=== PATIENT | female | born 1995 | race Caucasian/White ===

== ENCOUNTER 2020-01-04 23:09 | Inpatient (IN) | payer OTHER, SELFPAY ==
[2020-01-04 23:29] VITALS: BP 129/88; PULSE 111
[2020-01-04 23:30] VITALS: BP 129/93; PULSE 125
[2020-01-04 23:45] VITALS: BP 137/86; PULSE 95
[2020-01-04 23:49] VITALS: BMI 34.0
--- NOTE | 2020-01-04 23:50 | LDADM ---
This patient, Roselia Yancey, was admitted to Labor/Delivery/Recovery 104 on 01/04/20 at 23:09. Plans for labor, pain management and were discussed with patient. Patient/family oriented to hospital policies and general routines including ID bracelet, bed and alarms, visiting hours, pain management, procedures, bathroom and other care routines, personal items, smoking policy, room service/diet and guest tray routines, security routines, and visiting hours. Patient/Family are encouraged to report perceived risks to care and to ask questions if they do not understand what they are told or what they should do. See OBIX for further documentation.
[2020-01-04 23:51] LABS: Basophils Percent Auto 0.3 % (0.2-1.2); Eosinophils Absolute Auto 0.1 K/mm3 (0-0.3); Eosinophils Percent Auto 0.5 % (0-4.4); Hematocrit 30.7 % (37.0-47.0); Hemoglobin 9.8 g/dL (12.0-15.0); Immature Granulocyte Absolute 0.07 K/mm3 (0.00-0.031); Immature Granulocyte Percent A 0.7 % (0-0.5); Lymphocytes Absolute Auto 2.23 K/mm3 (0.9-3.2); Lymphocytes Percent Auto 21.2 % (18.3-44.2); Mean Corpuscular HGB Conc 31.9 g/dl (32-36); Mean Corpuscular Hemoglobin 26.1 pg (26-34); Mean Corpuscular Volume 81.9 fl (80-100); Mean Platelet Volume 11.8 fl (7.4-10.4); Monocytes Absolute Auto 0.8 K/mm3 (0.1-0.6); Monocytes Percent Auto 7.7 % (2.6-8.5); Neutrophils Absolute Auto 7.3 K/mm3 (1.3-6.7); Neutrophils Percent Auto 69.6 % (45.5-73.1); Platelet Count Result 227 k/mm3 (150-375); Red Blood Count 3.75 M/mm3 (4.2-5.4); Red Cell Distribution Width 14.6 % (11.5-14.5); White Blood Count 10.5 K/mm3 (4.5-10.0)
[2020-01-04 23:56] VITALS: PULSE 102; O2SAT 100
[2020-01-05] VITALS (185 sets, daily range): BP systolic 96–151; BP diastolic 18–95; PULSE 82–125; TEMP 36.9; O2SAT 89–100
[2020-01-05] MEDS: DINOPROSTONE 10 MG VAG INSERT VAGINAL (00:24)
--- NOTE | 2020-01-05 06:15 | WPDANESEPP ---
Anes - Eval Pre Procedure Procedure: labor epidural Date/Time: 01/05/20 06:15 Surgeon: Gilson Preop Diagnosis: labor pain Pre Op Diagnosis: IOL Patient Data Age: 24 Gender: F Height: 1.6 m Weight: 87.25 kg Last Vital Signs Pulse 91 01/05/20 04:46 BP 124/70 01/05/20 04:46 Pulse Ox 97 01/05/20 05:00 Allergies Allergy/AdvReac Type Severity Reaction Status Date / Time shellfish derived Allergy Anaphylaxis Verified 12/03/19 12:39 Home Medications Medication Instructions Recorded Confirmed Type PNV cmb#95-ferrous fumarate-FA 1 tablet PO DAILY 12/03/19 12/03/19 History [] Laboratory Tests 01/04/20 01/04/20 01/04/20 23:45 23:45 23:46 WBC 10.5 K/mm3 H K/mm3 (4.5-10.0) RBC 3.75 M/mm3 L M/mm3 (4.2-5.4) Hgb 9.8 g/dL L D g/dL (12.0-15.0) Hct 30.7 % L % (37.0-47.0) MCV 81.9 fl fl (80-100) MCH 26.1 pg pg (26-34) MCHC 31.9 g/dl L g/dl (32-36) RDW 14.6 % H % (11.5-14.5) Plt Count 227 k/mm3 k/mm3 (150-375) MPV 11.8 fl H fl (7.4-10.4) Immature Gran % (Auto) 0.7 % H % (0-0.5) Neut % (Auto) 69.6 % % (45.5-73.1) Lymph % (Auto) 21.2 % % (18.3-44.2) [place] % (Auto) 7.7 % % (2.6-8.5) Eos % (Auto) 0.5 % % (0-4.4) Baso % (Auto) 0.3 % % (0.2-1.2) Lymph # (Auto) 2.23 K/mm3 K/mm3 (0.9-3.2) [place] # (Auto) 0.8 K/mm3 H K/mm3 (0.1-0.6) Eos # (Auto) 0.1 K/mm3 K/mm3 (0-0.3) Baso # (Auto) 0.0 K/mm3 K/mm3 (0.0-0.1) Abs Immat Gran (auto) 0.07 K/mm3 H K/mm3 (0.00-0.031) Absolute Neuts (auto) 7.3 K/mm3 H K/mm3 (1.3-6.7) Absolute Nucleated RBC 0.0 K/mm3 K/mm3 (0.0-0.012) Nucleated RBC % 0.0 % % (0.0-0.2) RPR Pending Blood Type O Positive Antibody Screen Negative Patient hx anesthesia problems: none Family hx anesthesia problems: none PMFSH Family History Family History Other No pertinent family history Social History Social History Smoking status: Never smoker Second hand tobacco smoke exposure: No Substance use: never Gender identity (if verbalized by the patient): Female Spiritual care concerns: No Exam Day of Procedure 01/05/20 06:15 Patient weight: obese Heart: regular rate and rhythm Lungs: clear to auscultation and normal air movement Airway: Mallampati scale class II Neurological: alert and oriented
[2020-01-05 07:14] LABS: Rapid Plasma Reagin Non-Reactive (NonReactive)
--- NOTE | 2020-01-05 07:38 | PM.IMHP ---
H&P: HPI History of Present Illness Chief complaint: IOL Narrative: Roselia Yancey is a 24 yo @ 40.3wks who presents for IOL. She denies any issues and has had regular care. No vaginal bleeding, leakage of fluid. Good movement. Mild cramping. is complicated by: - [place] non-immune Review of Systems Constitutional: Constitutional: Denies body ache(s) and Denies chills Eyes: Eyes: Denies blurry vision Cardiovascular: Cardiovascular: Denies chest pain and Denies palpitations Respiratory: Respiratory: Denies cough and Denies dyspnea Gastrointestinal: Gastrointestinal: Denies nausea and Denies vomiting Genitourinary: Genitourinary: Denies vaginal discharge Neurologic: Denies headache(s) Psychiatric: Psychiatric: Denies anxiety [facility] Family History Family History Other No pertinent family history Social History Social History Smoking status: Never smoker Second hand tobacco smoke exposure: No Substance use: never Gender identity (if verbalized by the patient): Female Spiritual care concerns: No Meds Home Medications and Allergies Home Medications Medication Instructions Recorded Confirmed Type PNV cmb#95-ferrous fumarate-FA 1 tablet PO DAILY 12/03/19 12/03/19 History [] Allergies Allergy/AdvReac Type Severity Reaction Status Date / Time shellfish derived Allergy Anaphylaxis Verified 12/03/19 12:39 Vital Signs Vital Signs - 24 hr 01/04/20 23:29 01/04/20 23:30 01/04/20 23:45 Pulse Rate 111 H 125 H 95 Blood Pressure 129/88 129/93 H 137/86 Pulse Oximetry 01/04/20 23:56 01/05/20 00:01 01/05/20 00:06 Pulse Rate 94 Blood Pressure 123/81 Pulse Oximetry 100 100 99 01/05/20 00:11 01/05/20 00:15 01/05/20 00:16 Pulse Rate 109 H Blood Pressure 119/78 Pulse Oximetry 99 99 01/05/20 00:21 01/05/20 00:26 01/05/20 00:30 Pulse Rate 110 H Blood Pressure 117/81 Pulse Oximetry 100 100 01/05/20 00:31 01/05/20 00:36 01/05/20 00:41 Pulse Rate Blood Pressure Pulse Oximetry 100 100 100 01/05/20 00:45 01/05/20 00:46 01/05/20 00:51 Pulse Rate 85 Blood Pressure 124/75 Pulse Oximetry 100 99 01/05/20 00:56 01/05/20 01:00 01/05/20 01:01 Pulse Rate 87 Blood Pressure 128/79 Pulse Oximetry 100 100 01/05/20 01:06 01/05/20 01:11 01/05/20 01:15 Pulse Rate 94 Blood Pressure 124/82 Pulse Oximetry 100 99 01/05/20 01:16 01/05/20 01:21 01/05/20 01:26 Pulse Rate Blood Pressure Pulse Oximetry 100 100 100 01/05/20 01:30 01/05/20 01:31 01/05/20 01:36 Pulse Rate 103 H Blood Pressure 118/79 Pulse Oximetry 100 99 01/05/20 01:41 01/05/20 01:45 01/05/20 01:46 Pulse Rate 116 H Blood Pressure 126/76 Pulse Oximetry 100 100 01/05/20 01:51 01/05/20 01:56 01/05/20 02:00 Pulse Rate 114 H Blood Pressure 120/66 Pulse Oximetry 100 99 01/05/20 02:01 01/05/20 02:06 01/05/20 02:11 Pulse Rate Blood Pressure Pulse Oximetry 100 99 100 01/05/20 02:15 01/05/20 02:16 01/05/20 02:21 Pulse Rate 95 Blood Pressure 131/87 Pulse Oximetry 100 99 01/05/20 02:29 01/05/20 02:34 01/05/20 02:39 Pulse Rate Blood Pressure Pulse Oximetry 100 100 99 01/05/20 02:44 01/05/20 02:46 01/05/20 02:49 Pulse Rate 92 Blood Pressure 134/86 Pulse Oximetry 99 99 01/05/20 02:54 01/05/20 02:59 01/05/20 03:01 Pulse Rate 92 Blood Pressure 113/58 L Pulse Oximetry 99 99 01/05/20 03:04 01/05/20 03:09 01/05/20 03:14 Pulse Rate Blood Pressure Pulse Oximetry 99 99 99 01/05/20 03:16 01/05/20 03:19 01/05/20 03:24 Pulse Rate 87 Blood Pressure 110/55 L Pulse Oximetry 99 98 01/05/20 03:29 01/05/20 03:31 01/05/20 03:34 Pulse Rate 82 Blood Pressure 106/54 L Pulse Oximetry 98 98 01/05/20 03:39
[2020-01-05] MEDS: LACTATED RINGERS 1,000 ML 125 ML IV CONT ×2 (14:48→19:01)
[2020-01-05] MEDS: OXYTOCIN 30 UNITS/NS 500 ML 30 UNITS/500 ML BAG 6 UNITS IV CONT (14:52)
--- NOTE | 2020-01-05 18:02 | PM.OBPNLAB ---
Pain Control Date/time seen: 01/05/20 17:38 Pain control: narcotic analgesia (using fentanyl PRN) Pelvic Exam Dilation (cm): 1 Effacement (%): 70 station: -2 Amniotic membrane status: Ruptured (AROM, clear 1800) Contractions Monitor mode: External Contraction frequency: 3 Contraction pattern: Regular Status status: Category l Assessment and Plan Pitocin rate (mU/min): 18 Assessment: induction ongoing Comments: s/p cervidil overnight, now on pitocin @ 18mu; early induction @ 1cm, but unchanged all day, AROM performed this exam-- continue pitocin per protocol
[2020-01-05] MEDS: ONDANSETRON INJ 4 MG/2 ML VIAL IV PUSH (18:56)
[2020-01-06] VITALS (159 sets, daily range): BP systolic 83–161; BP diastolic 39–96; PULSE 73–169; RESP 15–20; TEMP 36.4–37.9; O2SAT 92–100
[2020-01-06] MEDS: FAMOTIDINE 20 MG/2 ML VIAL IV PUSH (00:49)
[2020-01-06] MEDS: ONDANSETRON INJ 4 MG/2 ML VIAL IV PUSH (07:36)
--- NOTE | 2020-01-06 09:27 | WPDANESEFPP ---
Anes - Eval Final PreProcedure Day of Procedure 01/06/20 09:27 Patient weight: obese Heart: regular rate and rhythm Lungs: clear to auscultation and normal air movement Airway: Mallampati scale class II Neurological: alert and oriented Last oral intake: >/= 8 hours ASA classification: II Emergent: yes Anesthetic plan: proceed Anesthesia type and monitoring: regional epidural and standard monitoring Informed Consent: The patient's anesthetic plan and its attendant risks and benefits were discussed with the patient/family/POA. Questions were solicited and answers provided to the satisfaction of the patient/family/POA.
--- NOTE | 2020-01-06 09:40 | WPDANESEFPP ---
Anes - Eval Final PreProcedure Day of Procedure 01/06/20 09:40 Patient weight: obese Heart: regular rate and rhythm Lungs: clear to auscultation and normal air movement Airway: Mallampati scale class II Neurological: alert and oriented Last oral intake: >/= 8 hours ASA classification: II Emergent: yes Anesthetic plan: proceed Anesthesia type and monitoring: regional epidural and standard monitoring Other findings: emergent C section Informed Consent: The patient's anesthetic plan and its attendant risks and benefits were discussed with the patient/family/POA. Questions were solicited and answers provided to the satisfaction of the patient/family/POA.
[2020-01-06] MEDS: ceFAZolin 2 GM/D5W 50 ML 2 GM/50 ML BAG IVPB (09:42)
--- NOTE | 2020-01-06 10:34 | PM.OBPRVD ---
OB - Delivery Note Procedure Delivery date: 01/06/20 Procedure: Procedures Operation Date: 01/06/20 09:30 <No data on this case meets the specified criteria> Intrapartal events: Prolonged 2nd Stage > 2.5 hours (with direct OP position) Induction method: other (Cervidil ) Delivery augmentation: rupture of membranes and pitocin Delivery monitor: external FHT and internal uterine Route of delivery: (after attempt at vacuum extraction) Indication for instrumentation: maternal exhaustion Laceration description: None Delivery repair: vicryl Specimen: Yes Estimated blood loss (mL): 355 Anesthesia type: Epidural Disposition: PACU Narrative: She had progressed to C/C/+2 after pushing for approximately 3 hours and was significantly tearful due to being exhausted after prolonged induction and pushing. She desired attempt at vacuum extraction. She was counseled on the risks and benefits and when the procedure would be discontinued and we would proceed with section; she agreed. The pediatric team was in the room. Once she felt a contraction, suction was applied, three pulls were performed without a pop-off, mild descent occurred and suction was released. Another contraction came and suction was reapplied and one pull was performed and a pop-off occurred. At that time, the patient desired to stop vacuum extraction and proceed with section. She was taken to the operating room where epidural anesthesia was noted to be aqequate. She was then prepped and draped in the normal sterile fashion. She received 2g Ancef and a time out was performed. A Pfannenstiel incision was made in the skin and carried down to the underlying fascia. The fascia was nicked on either side of the midline and the fascial incision was extended laterally and superiorly. The fascia was then elevated and the underlying rectus muscles were dissected off the fascia, superiorly and inferiorly. The rectus muscles were then in the midline and the peritoneum was entered bluntly. Once adequate exposure was obtained, an Esteban self retractor was placed within the abdomen. A bladder flap was created. A low transverse incision was made on the lower uterine segment and lightly stained meconium fluid was noted. The fetus was noted to be in direct occiput posterior position and easily brought to the hysterotomy and the head was easily delivered. The shoulder and body then followed without complications, the body cord was reduced. The fetus had spontaneous cry and the mouth was bulb suctioned. The cord was clamped and cut and the fetus was handed off to the awaiting pediatric nurse. A segment of the cord was collected for cord gases. The remaining cord blood was collected for typing. With pitocin infusing, the placenta delivered with gentle traction on the cord without complications. The uterus was then cleared out of all clots and debris using a clean, moist lap. Significant atony was noted, so methergine 0.2mg IM was administered. The hysterotomy was then repaired in a running, interlocking fashion using 0 Vicryl. A second layer imbricating suture was then made using 0 Vicryl. The hysterotomy was found to be hemostatic and good uterine tone was noted. The bilateral adnexa were examined and found to be normal. The pelvis was cleared of all clots and fluid. The esteban retractor was removed from the abdomen. The peritoneum, muscle, and fascia were examined and made hemostatic with bovie cautery. The fascia was then repaired using 0 Vicryl sutures in a running fashion. The subcutaneous tissue was then irrigated and made hemostatic with bovie cautery. The subcutaneous tissue was then reapproximated using 2-0 Vicryl. The skin was then closed using 3-0 Monocryl in a running subcuticular fashion. Sponge, lap, needle and instrument counts were correct at the end of the procedure x2. The patient tolerated the procedure well and was taken to recovery in a stable condition. [place] [facility]
[2020-01-06] MEDS: KETOROLAC 30 MG/ML VIAL (*BKC) IV PUSH ×3 (11:56→23:34)
[2020-01-06] MEDS: OXYTOCIN 30 UNITS/NS 500 ML 30 UNITS/500 ML BAG 125 UNITS IV CONT (11:56)
--- NOTE | 2020-01-06 12:48 | PC.NURSE ---
Patient transferred to post room #291 per stretcher. Support person present. Oriented to unit, room, information board, rooming in, admission packet and security measures. Patient verbalizes understanding.
[2020-01-06] MEDS: DEXTROSE 5%/0.45% SOD CHL 1,000 ML 125 ML IV CONT (17:11)
[2020-01-06] MEDS: DOCUSATE SODIUM 100 MG CAPSULE PO (17:12)
[2020-01-06] MEDS: LANOLIN (LANSINOH) 7.5 GM CREAM 1 APPLIC TOPICAL (17:12)
[2020-01-06] MEDS: POLYSACCHARIDE IRON COMPLEX 150 MG CAPSULE PO (17:12)
[2020-01-06] MEDS: SIMETHICONE 80 MG TAB.CHEW PO ×2 (17:12→23:34)
[2020-01-06] MEDS: KCL 20 MEQ/D5/0.45% SOD CHL 1,000 ML 125 ML IV CONT (23:34)
[2020-01-07 05:30] VITALS: BP 105/60; PULSE 96; RESP 13; TEMP 36.8; O2SAT 99
[2020-01-07 05:42] LABS: Basophils Percent Auto 0.2 % (0.2-1.2); Eosinophils Percent Auto 0.3 % (0-4.4); Hemoglobin 7.5 g/dL (12.0-15.0); Immature Granulocyte Absolute 0.17 K/mm3 (0.00-0.031); Immature Granulocyte Percent A 1.1 % (0-0.5); Lymphocytes Absolute Auto 2.03 K/mm3 (0.9-3.2); Lymphocytes Percent Auto 12.9 % (18.3-44.2); Mean Corpuscular HGB Conc 31.3 g/dl (32-36); Mean Corpuscular Hemoglobin 26.3 pg (26-34); Mean Corpuscular Volume 84.2 fl (80-100); Neutrophils Absolute Auto 12.6 K/mm3 (1.3-6.7); Neutrophils Percent Auto 79.5 % (45.5-73.1); Platelet Count Result 160 k/mm3 (150-375); Red Blood Count 2.85 M/mm3 (4.2-5.4); White Blood Count 15.8 K/mm3 (4.5-10.0)
[2020-01-07] MEDS: IBUPROFEN 600 MG TABLET PO ×3 (05:42→17:03)
[2020-01-07 08:00] VITALS: BP 111/57; PULSE 118; RESP 18; TEMP 36.6; O2SAT 100
[2020-01-07] MEDS: DOCUSATE SODIUM 100 MG CAPSULE PO ×2 (09:15→17:03)
[2020-01-07] MEDS: POLYSACCHARIDE IRON COMPLEX 150 MG CAPSULE PO ×2 (09:15→17:03)
[2020-01-07] MEDS: MULTIVIT/MIN/PREN/FOL AC/IRON TABLET 1 TAB PO (09:15)
[2020-01-07] MEDS: SIMETHICONE 80 MG TAB.CHEW PO (09:15)
--- NOTE | 2020-01-07 09:52 | WPDANLDPN2 ---
Anes-Prog Note L&D Date/Time: 01/07/20 09:52 Comfortable throughout: labor and section Neuraxial method: epidural Epidural/Spinal procedure site: clean & non-tender Neuro status: Neuro function grossly intact. Cardiovascular status: normal Respiratory status: normal Airway patency: baseline Mental status: baseline Post-Op hydration status: normal Vital Signs: Last Vital Signs Temp 36.8 C 01/07/20 05:30 Pulse 96 01/07/20 05:30 Resp 13 01/07/20 05:30 BP 105/60 01/07/20 05:30 Pulse Ox 99 01/07/20 05:30 I/O: Intake & Output 01/06/20 01/07/20 01/07/20 23:59 07:59 15:59 Intake Total 2800 0 Output Total 550 1325 Balance 2250 -1325 Post-procedural complaints: none Patient feedback: Patient satisfied with anesthetic care.
--- NOTE | 2020-01-07 09:52 | WPDANLDNPN2 ---
Anes-Prog Note L&D-Neuraxial Date/Time: 01/07/20 09:52 Neuraxial medications: epidural PF morphine Opiod-related complaints: none Patient feedback: Patient satisfied with post-operative pain management.
--- NOTE | 2020-01-07 12:30 | P.PNOB_ITS ---
OB - PN: Subj Subjective Date/time seen: 01/07/20 16:51 Roselia is a 24yo now [id number] s/p pLTCS 2/2 AOD, POD #1 Today, she reports feeling more pain than yesterday but it's tolerable with the medications. She has ambulated w/o s/sx of anemia. She has voided. 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 She is tolerating regular diet w/o N/V. She is breast feeding. She would like her son to be circumcised. No CP, KRISHNAN, vision changes, SOB, fever, chills, palpitations, dizziness, N/V. OB - PN: Obj Data Labs CBC & Chem 7: 01/07/20 05:31 Labs: Laboratory Results - last 24 hr 01/07/20 05:31 WBC 15.8 H RBC 2.85 L Hgb 7.5 L Hct 24.0 L MCV 84.2 MCH 26.3 MCHC 31.3 L RDW 15.0 H Plt Count 160 MPV 11.0 H Immature Gran % (Auto) 1.1 H Neut % (Auto) 79.5 H Lymph % (Auto) 12.9 L [place] % (Auto) 6.0 Eos % (Auto) 0.3 Baso % (Auto) 0.2 Lymph # (Auto) 2.03 [place] # (Auto) 1.0 H Eos # (Auto) 0.0 Baso # (Auto) 0.0 Abs Immat Gran (auto) 0.17 H Absolute Neuts (auto) 12.6 H Absolute Nucleated RBC 0.0 Nucleated RBC % 0.0 OB - PN A/P Assessment and Plan (1) S/P section: Code(s): Z98.891 - History of uterine scar from previous surgery Status: Acute (2) Arrest of descent, delivered, current hospitalization: Code(s): O62.1 - Secondary uterine inertia Status: Acute (3) Anemia: Qualifiers: Anemia type: iron deficiency Iron deficiency anemia type: other iron deficiency Qualified Code(s): D50.8 - Other iron deficiency anemias Code(s): D64.9 - Anemia, unspecified Status: Acute Plan day: 1 Plan: routine care Time Spent With Patient Time: Total time spent is greater than 50% in coordination of care (as documented) at patient's floor/unit and/or counseling patient: Review of Systems Review of Systems: All systems reviewed & are unremarkable except as noted in HPI and below (hpi) Exam Const: General: comfortable, no acute distress, alert and awake Orientation/consciousness: patient oriented x3 Resp: Effort & Inspection: normal respiratory effort Auscultation: clear to auscultation bilaterally Cardio: Rate: regular rate GI: Auscultation: normal bowel sounds Other: non-distended, soft, appropriately tender : Other: fundus firm at umbilicus Psych: Appearance: grossly normal
--- NOTE | 2020-01-07 13:25 | PC.NURSE ---
Upon entering mother is attempting to right breast without shield. Mother reports she fed infant on left breast with shield and would try without. Reviewed positioning/alignment in cross cradle, holding breast in U hold and guided asymmetrical latch on. Several attempts made, was unable to latch correctly. Discussed shield use with parents, advised to use shield for feedings and attempt first for one or two attempts then go to shield for latching. Mother is planning to supplement after feedings until her milk is in. Mother was given a breastpump during the night and has only pumped once. Suggested she pump after each feeding while using the shield until milk supply is established.
[2020-01-07 19:20] VITALS: BP 119/71; PULSE 106; RESP 18; TEMP 36.7; O2SAT 100
[2020-01-07] MEDS: ACETAMINOPHEN 325 MG TABLET 650 MG PO (19:21)
--- NOTE | 2020-01-07 21:08 | PC.NURSE ---
Father brought in [employer] for travel home tomorrow. [employer] 30 manufactured Jun, 2019. All parts are new and functioning. Expiration Jun, 2025.
[2020-01-08] MEDS: IBUPROFEN 600 MG TABLET PO ×2 (00:56→08:53)
[2020-01-08 08:10] VITALS: BP 116/77; PULSE 102; RESP 18; TEMP 36.9; O2SAT 100
--- NOTE | 2020-01-08 08:50 | PC.NURSE ---
Mother is bottle feeding each feeding with pumping. Mother is feeding as required and waking to feed if needed. is currently meeting outcomes for weight, output, jaundice and feeding frequencies. Mother states she will attempt to breast once her milk is in and infant is more eager to latch. Mother states she feels confident to continue current feeding plan at home. Discussed to increase supplementation at desires. Reviewed transition to breast milk, signs of adequate intake, and engorgement/relief. Instructed to call ICP if intake/output less than required. Reviewed regular medications mother is taking. Information provided per Sue. Reviewed community resources on the [facility] website and in the Mom/Baby guide. Information on outpatient services provided. Mother has no further questions at this time.
[2020-01-08] MEDS: POLYSACCHARIDE IRON COMPLEX 150 MG CAPSULE PO (08:52)
[2020-01-08] MEDS: SIMETHICONE 80 MG TAB.CHEW PO (08:52)
[2020-01-08] MEDS: DOCUSATE SODIUM 100 MG CAPSULE PO (08:52)
[2020-01-08] MEDS: MULTIVIT/MIN/PREN/FOL AC/IRON TABLET 1 TAB PO (08:52)
[2020-01-08] MEDS: MEASLES,MUMPS,RUBELLA VACCINE 0.5 ML VIAL SUB-Q (11:34)
--- NOTE | 2020-01-08 12:00 | PC.NURSE ---
Patient ambulatory and discharged home with infant. Follow-up appointment scheduled, discharge teaching complete.
[2020-01-09 09:10] VITALS: BP 123/78; PULSE 98; RESP 20; TEMP 37.1; O2SAT 99
--- NOTE | 2020-01-11 11:32 | PM.OBDSVD ---
DS: Admitting Diagnosis Admitting Diagnosis Admitting Diagnosis: 40 weeks gestation of DS: Discharge Diagnosis Discharge Diagnosis (1) Arrest of descent, delivered, current hospitalization: Code(s): O62.1 - Secondary uterine inertia Status: Acute (2) S/P section: Code(s): Z98.891 - History of uterine scar from previous surgery Status: Acute (3) Anemia: Qualifiers: Anemia type: iron deficiency Iron deficiency anemia type: other iron deficiency Qualified Code(s): D50.8 - Other iron deficiency anemias Code(s): D64.9 - Anemia, unspecified Status: Acute OB - DS: Summary OB Procedures : None OB Procedures Intrapartum: Vacuum extraction (failed) and low cervical, transverse (uncomplicated) OB Procedures: : None Peripartum Data Infant Delivery Method: Section Procedures: Procedures Operation Date: 01/06/20 09:30 Actual Procedures Side Surgeon p Section Latoya Riggins MD complications: none Ephraim 1: Gender: Male Disposition of : home Status at Discharge Functional status at discharge: independent ambulation Overall status at discharge: patient is back to baseline Time Spent with Patient Time attestation: Total time spent providing and/or coordinating discharge services: Exam Const: General: comfortable, no acute distress, alert and awake Orientation/consciousness: patient oriented x3 Resp: Effort & Inspection: normal respiratory effort Auscultation: clear to auscultation bilaterally Cardio: Rate: regular rate GI: Inspection: non-distended GI Palp: Yes Soft to palpation Auscultation: normal bowel sounds Other: pfannenstiel incision covered w/ c/d/i dressing : Other: fundus firm below umbilicus, normal lochia Psych: Appearance: grossly normal Affect: normal affect Attitude: cooperative Judgement: Good judgement present (Psych) DS: Data Data Completed and Pending Completed studies during hospitalization: Pending at discharge 01/06/20 10:55 Surgical [PTH] Routine Discharge Plan Discharge Consulting providers: Tapan Chao Discharging Clinician: Maricel Edouard Patient Disposition: Home, Self-Care Activity: may shower, no driving, as tolerated and pelvic rest Diet: as tolerated and regular Discharge Instructions: Education: Mom and Baby Guide Given to: Mother Follow-Up: Call your delivering provider's office for an appointment to be seen in: Mom and baby should come to the [facility] for the follow-up appointment. Appointment Date/Time: January 09, 2020 at 9:00 am What to expect at your follow-up visit: Blood Pressure Check Call [phone] if you are unable to keep your appointment time. BREAST CARE: * Wear a snug supportive bra. * For engorgement discomfort: Breast Feeding: * Apply warm moist washcloths * Express milk as needed to relieve engorgement * Wear loose clothing Bottle Feeding: * May apply ice packs * For sore nipples: * Identify correct latch-on * Apply warm moist washcloths before and after nursing * Air dry nipples after nursing * May apply Lansinoh cream to nipples ABDOMINAL INCISION: (if applicable) * Allow incision to air dry * Do NOT use lotions for powders on your incision * When showering, allow soap and water to run over the incision, but do not wash incision PERINEAL CARE: * Until bleeding stops, use your keara bottle after urinating * Change your pad frequently throughout the day * No tub baths until seen by your physician - You may shower ACTIVITY: * Rest as much as possible. * Do not exercise or lift anything heavier than your baby (such as laundry or other children.) * Avoid stairs or driving as much as possible. * Do not put anything into the vagina. No douc
== END 2020-01-08 12:00 | disposition home or self-care (01) | DRG 788 ==
LOC: ANHLDR 23:21 → ANHOB2 01-08 08:31 → ANHLDR 01-08 18:13 → ANHOB2 01-08 18:13
PROVIDERS: Admitting Provider Obstetrics & Gynecology; Visit Provider Obstetrics & Gynecology
PROC: 10D00Z1 Extraction of Products of Conception, Low, Open Approach (ICD-10-PCS; CPT 59514; principal; 2020-01-06 09:30)
DX: O99.02 Anemia complicating childbirth (principal); Z37.0 Single live birth; Z3A.40 40 weeks gestation of pregnancy; O99.214 Obesity complicating childbirth; E66.9 Obesity, unspecified; D50.8 Other iron deficiency anemias; O62.1 Secondary uterine inertia; O75.81 Maternal exhaustion complicating labor and delivery; O66.5 Attempted application of vacuum extractor and forceps
CPT/HCPCS: 36415; 85025; 86592; 86850; 86900; 86901; 88307; 90710; A9270; J0131; J0690; J1885; J2210; J2274; J2405; J2590; J2795; J3010; J3480; J7120

== ENCOUNTER 2020-01-20 19:16 | Emergency (ER) | payer OTHER, SELFPAY ==
--- NOTE | ~2020-01-20 | CT_ITS ---
EXAMINATION: CT abdomen pelvis w con EXAM DATE: 01/20/2020 20:49 INDICATION: Right upper quadrant pain. TECHNIQUE: Spiral CT of the abdomen and pelvis was performed following intravenous injection of 100 m L Omnipaque 350. Axial, coronal and sagittal images were reviewed. The dose-length product (DLP) fo r this examination was 543.88 mGy-cm. The exposure was tailored according to patient size (auto mA e xposure control), and iterative reconstruction (ASIR) was used as additional dose reduction technique . There is no prior study for comparison. FINDINGS: The liver, spleen, adrenal glands and pancreas are unremarkable. The gallbladder is disten ded but otherwise unremarkable. There is no biliary duct dilation. Portal and splenic veins are pat ent. Kidneys enhance symmetrically. There is no hydronephrosis. Uterus enlarged, with heterogeneo us enhancement, some endometrial and vaginal fluid suspected, likely findings. No endometr ial gas to suggest endometritis. The bladder is unremarkable. There is no retroperitoneal or pelvic lymphadenopathy. The appendix is normal. The stomach and small bowel are unremarkable. There is expected amount of c olonic stool. No free intraperitoneal gas. The heart is normal in size. There are no pericardial or pleural effusions. The lung bases are unremarkable. The bones are unremarkable. IMPRESSION: 1. uterus. 2. Distended but otherwise unremarkable gallbladder. Reviewed, dictated and finalized at location A.
[2020-01-20 19:21] VITALS: BP 135/94; PULSE 46; RESP 19; TEMP 36.8; O2SAT 98
--- NOTE | 2020-01-20 19:48 | ED.ABDPAIN ---
HPI - Abdominal Pain General Chief Complaint: Abdominal Pain Stated Complaint: abd pain Time Seen by Provider: 01/20/20 19:33 History of Present Illness HPI narrative: Severe epigastric pain since 1600 today. Associated with nausea and vomiting. Radiates to her back. She has never had this pain before. No constipation, diarrhea. She is 2 weeks s/p . Related Data Home Medications Medication Instructions Recorded Confirmed PNV cmb#95-ferrous fumarate-FA 1 tablet PO DAILY 12/03/19 12/03/19 [] Allergies Allergy/AdvReac Type Severity Reaction Status Date / Time shellfish derived Allergy Anaphylaxis Verified 12/03/19 12:39 Review of Systems Review of Systems: All systems reviewed & are unremarkable except as noted in HPI and below Constitutional: Constitutional: Denies fever(s) Cardiovascular: Cardiovascular: Denies chest pain Respiratory: Respiratory: Denies dyspnea Gastrointestinal: Gastrointestinal: Reports abdominal pain, Denies constipation, Denies diarrhea, Reports nausea and Reports vomiting Genitourinary: Genitourinary: Denies hematuria, Denies nocturia and Denies dysuria Musculoskeletal: Musculoskeletal: Reports back pain [facility] Surgical History Surgical History (Updated 01/21/20 @ 00:33 by Lamberto Camarillo MD) S/P section Family History Family History Mother Gall bladder disease Other No pertinent family history Social History Social History Smoking status: Never smoker Second hand tobacco smoke exposure: No Substance use: never Gender identity (if verbalized by the patient): Female Spiritual care concerns: No Exam Const: General: healthy appearing, no acute distress and alert Orientation/consciousness: patient oriented x3 HENMT: Head: normal to inspection Resp: Effort & Inspection: tachypneic Auscultation: clear to auscultation bilaterally Cardio: Rate: regular rate Rhythm: regular rhythm GI: Inspection: non-distended GI Palp: Yes Soft to palpation, Yes Tenderness to palpation present (GI) (RUQ) and Yes Guarding due to palpation present (GI) Skin: Other: Diaphoretic Neuro: General: patient oriented x3, moves all extremities and CN's II-XI intact bilaterally Speech: normal speech Extrem: General: normal to inspection Psych: Affect: Anxious affect present Course Vital Signs Vital signs: Vital Signs Temperature 36.8 C 01/20/20 19:21 Pulse Rate 46 L 01/20/20 19:21 Respiratory Rate 19 01/20/20 19:21 Blood Pressure 135/94 H 01/20/20 19:21 Pulse Oximetry 98 01/20/20 19:21 Temperature 36.8 C 01/20/20 22:50 Pulse Rate 68 01/20/20 22:50 Respiratory Rate 16 01/20/20 22:50 Blood Pressure 134/86 01/20/20 22:50 Pulse Oximetry 98 01/20/20 22:50 MDM - Abdominal Pain MDM Narrative Medical decision making narrative: UA concerning for infection. Gall bladder distended on CT, but otherwise. Normal. Presentation consistent with biliary colic, but diagnosis is not clear. Medical Records Attestation: I reviewed the patient's medical records. Lab Data Attestation: I reviewed the patient's lab results. Result diagrams: 01/20/20 19:52 01/20/20 19:52 Labs: Lab Results 01/20/20 01/20/20 01/20/20 Range/Units 19:52 19:52 19:54 WBC 13.7 H (4.5-10.0) K/mm3 RBC 4.77 (4.2-5.4) M/mm3 Hgb 12.1 D (12.0-15.0) g/dL Hct 39.2 (37.0-47.0) % MCV 82.2 (80-100) fl MCH 25.4 L (26-34) pg MCHC 30.9 L (32-36) g/dl RDW 15.6 H (11.5-14.5) % Plt Count 476 H D (150-375) k/mm3 MPV 10.3 (7.4-10.4) fl Immature Gran % (Auto) 0.4 (0-0.5) % Neut % (Auto) 80.8 H (45.5-73.1) % Lymph % (Auto) 14.1 L (18.3-44.2) % [place] % (Auto) 3.9 (2.6-8.5) % Eos % (Auto) 0.4 (0-4.4) % Baso % (Auto) 0.4 (0.2-1.2) % Lymph # (
[2020-01-20] MEDS: PANTOPRAZOLE SODIUM IV 40 MG VIAL IV PUSH (19:59)
[2020-01-20] MEDS: ONDANSETRON INJ 4 MG/2 ML VIAL IV PUSH (19:59)
[2020-01-20] MEDS: SODIUM CHLORIDE 0.9% IV 1,000 ML 999 ML IV CONT (20:00)
[2020-01-20 20:02] LABS: Basophils Absolute Auto 0.1 K/mm3 (0.0-0.1); Basophils Percent Auto 0.4 % (0.2-1.2); Eosinophils Absolute Auto 0.1 K/mm3 (0-0.3); Eosinophils Percent Auto 0.4 % (0-4.4); Hematocrit 39.2 % (37.0-47.0); Hemoglobin 12.1 g/dL (12.0-15.0); Immature Granulocyte Absolute 0.05 K/mm3 (0.00-0.031); Immature Granulocyte Percent A 0.4 % (0-0.5); Lymphocytes Absolute Auto 1.93 K/mm3 (0.9-3.2); Lymphocytes Percent Auto 14.1 % (18.3-44.2); Mean Corpuscular HGB Conc 30.9 g/dl (32-36); Mean Corpuscular Hemoglobin 25.4 pg (26-34); Mean Corpuscular Volume 82.2 fl (80-100); Mean Platelet Volume 10.3 fl (7.4-10.4); Monocytes Absolute Auto 0.5 K/mm3 (0.1-0.6); Monocytes Percent Auto 3.9 % (2.6-8.5); Neutrophils Absolute Auto 11.1 K/mm3 (1.3-6.7); Neutrophils Percent Auto 80.8 % (45.5-73.1); Platelet Count Result 476 k/mm3 (150-375); Red Blood Count 4.77 M/mm3 (4.2-5.4); Red Cell Distribution Width 15.6 % (11.5-14.5); White Blood Count 13.7 K/mm3 (4.5-10.0)
[2020-01-20 20:07] LABS: Add Urine Microscopic? YES; Appearance Urine Cloudy (Clear); Bacteria Urine Trace /hpf; Bilirubin Urine Negative (Negative); Blood Urine 3+ (Negative); Color Urine Yellow (Yellow); Glucose Urine UA Negative (Negative); Ketones Urine Negative (Negative); Leukocyte Esterase Ur 3+ LEU/UL (Negative); Mucus Urine Moderate /lpf; Nitrate Urine Negative (Negative); Protein Urine 2+ mg/dL (Negative); RBC Urine 51-75 /hpf (0-2); Specific Grav Ur 1.026 (1.001-1.035); Squamous Epithelial Cell Urine Occasional /hpf (Few); Urobilinogen Urine Negative mg/dL (<2.0); WBC Urine >75 /hpf
[2020-01-20 20:24] LABS: Alanine Aminotransferase 20 U/L (4-35); Albumin Level 4.5 g/dL (3.5-5.1); Alkaline Phosphatase 135 U/L (38-126); Anion Gap 10 mmol/L (8-16); Aspartate Amino Transferase 38 U/L (14-36); Bilirubin,Total 0.4 mg/dL (0.2-1.3); Blood Urea Nitrogen 20 mg/dL (7-17); Calcium 9.4 mg/dL (8.4-10.2); Carbon Dioxide 24 mmol/L (22-30); Chloride 106 mmol/L (98-107); Estimated Glomerular Filt Rate > 60; Glucose 102 mg/dL (65-105); Lipase 231 U/L (23-300); Potassium 3.9 mmol/L (3.4-5.0); Sodium 140 mmol/L (137-145)
[2020-01-20] MEDS: MORPHINE SULFATE 4 MG/ML INJ IV PUSH (21:02)
[2020-01-20] MEDS: ONDANSETRON INJ 4 MG/2 ML VIAL (21:37)
[2020-01-20] MEDS: PROMETHAZINE HCL 25 MG/ML AMPUL 12.5 MG IV PUSH (22:07)
[2020-01-20] MEDS: KETOROLAC 30 MG/ML VIAL (*BKC) IV PUSH (22:07)
[2020-01-20 22:18] VITALS: BP 131/82; PULSE 72; RESP 16; O2SAT 98
[2020-01-20] MEDS: NITROFURANTOIN MONOHYD MACROCR 100 MG CAP PO (22:46)
[2020-01-20 22:50] VITALS: BP 134/86; PULSE 68; RESP 16; TEMP 36.8; O2SAT 98
== END 2020-01-20 22:51 | disposition home or self-care (01) ==
PROVIDERS: Emergency Provider Emergency Medicine
DX: N39.0 Urinary tract infection, site not specified (principal); R10.84 Generalized abdominal pain
CPT/HCPCS: 36415; 74177; 80053; 81001; 83690; 85025; 87077; 87086; 87088; 87186; 96361; 96374; 96375; 96376; 99284; A9270; C9113; J1885; J2270; J2405; J2550; J3010; J7030; Q9967

== ENCOUNTER 2020-03-02 04:37 | Emergency (ER) | payer OTHER, SELFPAY ==
--- NOTE | ~2020-03-02 | US_ITS ---
EXAMINATION: US right upper quadrant DATE: 03/02/2020 07:26 INDICATION: Right upper quadrant abdominal pain. TECHNIQUE: Multiple grayscale and Doppler ultrasound images of the abdomen were obtained. COMPARISON: CT abdomen and pelvis 01/20/2020 FINDINGS: The visualized portions of the head of the pancreas is normal. The liver is normal without focal lesion. No liver surface nodularity. There is normal flow in main portal vein. The gallbladder is normal in size and contains gallstones. No gallbladder wall thickening or sonographic Gonzalez sign. The common duct is normal and measures 3 mm. IMPRESSION: 1. Cholelithiasis. No evidence of acute cholecystitis. Reviewed, dictated and finalized at location A.
[2020-03-02 04:51] VITALS: BP 112/73; PULSE 105; RESP 20; TEMP 36.9; O2SAT 100
--- NOTE | 2020-03-02 05:09 | ED.ABDPAIN ---
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 Pt states she's been having pain in her gallbladder on and off for the past 6 weeks, seen a GI an EGD is scheduled for this week. Denies any vomiting or diarrhea, admits to nausea. Denies fever. <Raji High MD - Last Filed: 03/02/20 19:12> Pertinent past history: none <Raji High MD - Last Filed: 03/02/20 19:12> Migration to: no migration <Raji High MD - Last Filed: 03/02/20 19:12> Exacerbating factors: nothing <Raji High MD - Last Filed: 03/02/20 19:12> Relieving factors: nothing <Raji High MD - Last Filed: 03/02/20 19:12> Associated symptoms: denies other symptoms <Raji High MD - Last Filed: 03/02/20 19:12> Related Data Home Medications: Home Medications Medication Instructions Recorded Confirmed ondansetron HCl [Zofran] 4 mg PO Q8H PRN 03/02/20 03/02/20 <Raji High MD - Last Filed: 03/02/20 19:12> Allergies/Adverse Reactions: Allergies Allergy/AdvReac Type Severity Reaction Status Date / Time shellfish derived Allergy Anaphylaxis Verified 03/02/20 10:29 <Raji High MD - Last Filed: 03/02/20 19:12> Review of Systems Review of Systems: All systems reviewed & are unremarkable except as noted in HPI and below <Raji High MD - Last Filed: 03/02/20 19:12> Constitutional: Constitutional: Denies body ache(s), Denies chills, Denies excessive sweating, Denies fatigue, Denies fever(s), Denies headache(s), Denies lethargy, Denies malaise, Denies weakness and Denies weight loss <Raji High MD - Last Filed: 03/02/20 19:12> Eyes: Eyes: Denies blurry vision, Denies change in vision and Denies loss of vision <Raji High MD - Last Filed: 03/02/20 19:12> ENT: Denies dizziness, Denies ear discharge, Denies headache(s), Denies lip swelling, Denies epistaxis, Denies nasal congestion, Denies neck pain, Denies throat swelling and Denies tongue swelling <Raji High MD - Last Filed: 03/02/20 19:12> Cardiovascular: Cardiovascular: Denies chest pain, Denies chest pain at rest, Denies chest pain with activity, Denies diaphoresis, Denies rapid heart rate, Denies edema, Denies irregular heart rhythm, Denies lightheadedness, Denies palpitations, Denies dyspnea and Denies dyspnea on exertion <Raji High MD - Last Filed: 03/02/20 19:12> Respiratory: Respiratory: Denies chest congestion, Denies cough, Denies hemoptysis, Denies dyspnea and Denies dyspnea on exertion <Raji High MD - Last Filed: 03/02/20 19:12> Gastrointestinal: Gastrointestinal: Denies melena, Denies hematochezia, Denies diarrhea, Denies vomiting and Denies hematemesis <Raji High MD - Last Filed: 03/02/20 19:12> Musculoskeletal: Musculoskeletal: Denies abnormal gait, Denies deformity, Denies joint swelling, Denies limited range of motion, Denies neck pain and Denies numbness <Raji High MD - Last Filed: 03/02/20 19:12> Neurologic: Denies Abnormal speech present, Denies abnormal gait, Denies confusion, Denies dizziness, Denies headache(s), Denies focal weakness, Denies loss of vision, Denies numbness, Denies Other visual disturbances, Denies Sensory deficit (Neuro) and Denies weakness <Raji High MD - Last Filed: 03/02/20 19:12> Psychiatric: Psychiatric: Denies confusion, Denies depression, Denies auditory hallucinations, Denies homicidal ideation and Denies suicidal ideation <Raji High MD - Last Filed: 03/02/20 19:12> Endocrine: Endocrine: Denies cold
[2020-03-02] MEDS: KETOROLAC 30 MG/ML VIAL (*BKC) IV PUSH (05:12)
[2020-03-02] MEDS: SODIUM CHLORIDE 0.9% IV 1,000 ML 999 ML IV CONT (05:12)
[2020-03-02] MEDS: PROMETHAZINE HCL 25 MG/ML AMPUL 12.5 MG IV PUSH (05:13)
[2020-03-02 05:22] LABS: Basophils Percent Auto 0.6 % (0.2-1.2); Eosinophils Absolute Auto 0.1 K/mm3 (0-0.3); Eosinophils Percent Auto 1.7 % (0-4.4); Hematocrit 38.6 % (37.0-47.0); Immature Granulocyte Absolute 0.01 K/mm3 (0.00-0.031); Immature Granulocyte Percent A 0.2 % (0-0.5); Lymphocytes Absolute Auto 2.33 K/mm3 (0.9-3.2); Lymphocytes Percent Auto 36.3 % (18.3-44.2); Mean Corpuscular HGB Conc 31.1 g/dl (32-36); Mean Corpuscular Hemoglobin 26.2 pg (26-34); Mean Corpuscular Volume 84.3 fl (80-100); Mean Platelet Volume 10.4 fl (7.4-10.4); Monocytes Absolute Auto 0.4 K/mm3 (0.1-0.6); Monocytes Percent Auto 6.7 % (2.6-8.5); Neutrophils Absolute Auto 3.5 K/mm3 (1.3-6.7); Neutrophils Percent Auto 54.5 % (45.5-73.1); Platelet Count Result 267 k/mm3 (150-375); Red Blood Count 4.58 M/mm3 (4.2-5.4); Red Cell Distribution Width 17.2 % (11.5-14.5); White Blood Count 6.4 K/mm3 (4.5-10.0)
[2020-03-02 05:39] LABS: Alanine Aminotransferase 32 U/L (4-35); Albumin Level 4.1 g/dL (3.5-5.1); Alkaline Phosphatase 97 U/L (38-126); Anion Gap 7 mmol/L (8-16); Aspartate Amino Transferase 36 U/L (14-36); Bilirubin,Total 0.3 mg/dL (0.2-1.3); Blood Urea Nitrogen 14 mg/dL (7-17); Calcium 9.4 mg/dL (8.4-10.2); Carbon Dioxide 25 mmol/L (22-30); Chloride 107 mmol/L (98-107); Estimated CRCL calculation 107 ml/min; Estimated Glomerular Filt Rate > 60; Glucose 100 mg/dL (65-105); Lipase 246 U/L (23-300); Sodium 139 mmol/L (137-145)
[2020-03-02 09:37] VITALS: BP 113/73; PULSE 87; RESP 18; O2SAT 99
== END 2020-03-02 09:38 | disposition home or self-care (01) ==
PROVIDERS: Emergency Medicine; Emergency Provider Emergency Medicine; PCP Family Medicine Sports Medicine
DX: K81.9 Cholecystitis, unspecified (principal)
CPT/HCPCS: 36415; 76705; 80053; 83690; 85025; 96361; 96374; 96375; 99284; J1885; J2550; J7030

== ENCOUNTER 2020-03-03 01:13 | Day surgery (SDC) | payer OTHER, SELFPAY ==
[2020-03-02 10:28] VITALS: BMI 29.2
[2020-03-03] VITALS (12 sets, daily range): BP systolic 114–153; BP diastolic 63–93; PULSE 67–128; RESP 10–20; TEMP 36.3–37.1; O2SAT 94–100
--- NOTE | 2020-03-03 08:20 | WPDANESEPP ---
Anes - Eval Pre Procedure Procedure: Operation Date: 03/03/20 13:00 Proposed Procedures p Laparoscopic Cholecystectomy - Brenda Pan MD Date/Time: 03/03/20 08:20 Pre Op Diagnosis: symptomatic cholelithiasis Patient Data Age: 24 Gender: F Height: 5 ft 4 in Weight: 77.11 kg Allergies Allergy/AdvReac Type Severity Reaction Status Date / Time shellfish derived Allergy Anaphylaxis Verified 03/02/20 10:29 Home Medications Medication Instructions Recorded Confirmed Type docusate sodium [Dulcolax Stool 100 mg PO BID #14 cap 03/02/20 03/02/20 Rx Softener (dss)] ondansetron HCl [Zofran] 4 mg PO Q8H PRN 03/02/20 03/02/20 History oxycodone [Roxicodone] 5 mg PO Q8H PRN #14 tablet 03/02/20 03/02/20 Rx Patient hx anesthesia problems: none Family hx anesthesia problems: none PMFSH Past Medical History Medical History (Updated 03/03/20 @ 08:26 by Joss Strauss CRNA) Anemia Arrest of descent, delivered, current hospitalization Eczema Elevated liver enzymes Nausea and vomiting in adult anxiety Symptomatic cholelithiasis Upper abdominal pain Surgical History Surgical History S/P section Family History Family History Mother Gall bladder disease Other No pertinent family history Social History Social History Smoking status: Never smoker Second hand tobacco smoke exposure: No Alcohol intake: current Drinks per week: 0 Substance use: former Substance use type: marijuana Other substance usage details: RECENTLY USED MARIJUANA A COUPLE OF TIMES TO HELP WITH ABDOMINAL PAIN/NAUSE Last use: 3 WEEKS AGO Gender identity (if verbalized by the patient): Female Spiritual care concerns: No Exam Day of Procedure 03/03/20 08:20
[2020-03-03] MEDS: LACTATED RINGERS 1,000 ML 30 ML IV CONT ×2 (11:50→14:03)
[2020-03-03] MEDS: ACETAMINOPHEN 500 MG TABLET 1000 MG PO (11:55)
[2020-03-03 12:08] LABS: Amylase 64 U/L (30-110)
[2020-03-03] MEDS: KETOROLAC 15 MG/ML VIAL (*BKC) IV PUSH (12:18)
--- NOTE | 2020-03-03 12:18 | P.PNAN_ITS ---
Anes - Initial Pre Proc Eval Procedure: Operation Date: 03/03/20 13:00 Proposed Procedures p Laparoscopic Cholecystectomy - Brenda Pan MD Date/Time: 03/03/20 12:18 Surgeon: Brenda Pan MD Pre Op Diagnosis: symptomatic cholelithiasis Patient Data Age: 24 Gender: F Height: 5 ft 4 in Weight: 77.11 kg Allergies Allergy/AdvReac Type Severity Reaction Status Date / Time shellfish derived Allergy Anaphylaxis Verified 03/02/20 10:29 Home Medications Medication Instructions Recorded Confirmed Type docusate sodium [Dulcolax Stool 100 mg PO BID #14 cap 03/02/20 03/02/20 Rx Softener (dss)] ondansetron HCl [Zofran] 4 mg PO Q8H PRN 03/02/20 03/02/20 History oxycodone [Roxicodone] 5 mg PO Q8H PRN #14 tablet 03/02/20 03/02/20 Rx Laboratory Tests 03/03/20 11:44 Amylase 64 U/L U/L (30-110) Patient hx anesthesia problems: none Family hx anesthesia problems: none PMFSH Past Medical History Medical History (Updated 03/03/20 @ 08:26 by Joss Strauss CRNA) Anemia Arrest of descent, delivered, current hospitalization Eczema Elevated liver enzymes Nausea and vomiting in adult anxiety Symptomatic cholelithiasis Upper abdominal pain Surgical History Surgical History S/P section Family History Family History Mother Gall bladder disease Other No pertinent family history Social History Social History Smoking status: Never smoker Second hand tobacco smoke exposure: No Alcohol intake: current Drinks per week: 0 Substance use: former Substance use type: marijuana Other substance usage details: RECENTLY USED MARIJUANA A COUPLE OF TIMES TO HELP WITH ABDOMINAL PAIN/NAUSE Last use: 3 WEEKS AGO Gender identity (if verbalized by the patient): Female Spiritual care concerns: No Anes - Eval Final PreProcedure Day of Procedure 03/03/20 12:18 Patient weight: obese Heart: regular rate and rhythm Lungs: clear to auscultation Airway: Mallampati scale class II Neurological: alert and oriented Last oral intake: >/= 8 hours ASA classification: II Emergent: no Anesthetic plan: proceed Anesthesia type and monitoring: general ETT and standard monitoring Informed Consent: The patient's anesthetic plan and its attendant risks and bene fits were discussed with the patient/family/POA. Questions were solicited and answers provided to the satisfaction of the patient/family/POA.
--- NOTE | 2020-03-03 12:57 | WPDHPUPDATE1 ---
History and Physical Update Update Date/Time: 03/03/20 12:57 History and Physical has been reviewed, including an updated exam of the patient. There are NO changes in the patient's condition. Risks, benefits, and alternatives have been discussed and questions answered. Patient agrees to proceed with procedure.
[2020-03-03] MEDS: ceFAZolin 2 GM/D5W 50 ML 2 GM/50 ML BAG IVPB (13:05)
[2020-03-03] MEDS: BUPIVACAINE/EPINEPHRINE 0.5% 10 ML VIAL 20 ML INFILTRATE (13:34)
--- NOTE | 2020-03-03 14:12 | P.OP_ITS ---
Procedure Note - Detailed Date of procedure: 03/03/20 Pre-op diagnosis: symptomatic cholelithiasis Post-op diagnosis: same Procedure performed: laparoscopic cholecystectomy Description of procedure: The patient was taken to the operating room placed in the supine position. After adequate induction of general anesthesia, the patient was prepped and draped in normal sterile fashion. A time-out was then performed to verify the patient's identity as well as the procedure being performed. I then made a 5 mm incision in the infraumbilical region. Through this, a Veress needle was placed into the peritoneal cavity and CO2 gas was then insufflated. After adequate pneumoperitoneum was achieved, the Veress needle was removed and a 5 mm trocar was placed through this incision. I then placed the laparoscope through this trocar site and under direct visualization placed a further 12 mm subxiphoid port as well as 2 additional 5 mm ports in the right upper abdomen. The gallbladder was then identified and was noted to be slightly inflamed. I was able to place a grasper at the dome of the gallbladder and this was retracted anterior and cephalad up over the liver. A 2nd retractor was then placed at the infundibulum and retracted laterally, this allowed visualization of the triangle of Calot. I then was able to visualize the cystic duct in its entirety from its proximal insertion into the gallbladder, to its distal junction with the common hepatic/common bile duct junction. At this point, I carefully skeletonized the proximal cystic duct with the [place] dissector. I then clipped and transected the proximal cystic duct. Next I visualized the cystic artery. Again the artery was skeletonized, clipped, and transected. I then used the Bovie cautery to take down the peritoneal attachments of the gallbladder off the liver bed. Once the gallbladder specimen was completely detached, an endo-pouch was placed through the 12 mm port site. I then placed the gallbladder specimen into the Endo pouch and removed the endo-pouch from the 12 mm port site. The specimen will now be sent to pathology for further review. I then copiously irrigated the right upper quadrant. Hemostasis was noted in the liver bed, the clips were noted to be in good position on both the cystic duct stump and the cystic artery stump. No other pathology was noted in the right upper quadrant. I then moved the laparoscope to the subxiphoid port. No iatrogenic injury or other pathology was noted in the lower abdomen. At this point, the abdomen was desufflated and all ports removed. The fascia of the 12 mm subxiphoid port was closed with a 0 Vicryl figure of 8 suture. All port sites were then closed with 4.O Monocryl subcuticular sutures. Dermabond was placed on each incision. The patient tolerated the procedure well, was extubat ed in the operating room postoperative and will be transferred to the recovery room in stable condition. Implants: none Anesthesia: GETA Surgeon: Brenda Pan MD Estimated blood loss (mL): 5 Drains: No Packing: No Pathology: yes Complications: No immediate complications Condition: stable Disposition: PACU Findings: cholecystitis
[2020-03-03] MEDS: fentaNYL CITRATE INJ (*CRX) 100 MCG/2 ML VIAL 25 MCG IV PUSH ×10 (14:39→15:50)
[2020-03-03] MEDS: ONDANSETRON INJ 4 MG/2 ML VIAL IV PUSH (16:04)
[2020-03-03] MEDS: diphenhydrAMINE HCl INJ 50 MG/ML VIAL 25 MG IV PUSH (16:38)
[2020-03-03] MEDS: SCOPOLAMINE 1.5 MG PATCH TRANSDERM (16:39)
== END 2020-03-03 17:35 | disposition home or self-care (01) ==
PROVIDERS: PCP Family Medicine Sports Medicine; Visit Provider Surgery
PROC: 0FT44ZZ Resection of Gallbladder, Percutaneous Endoscopic Approach (ICD-10-PCS; CPT 47562; principal; 2020-03-03 13:00)
DX: K80.10 Calculus of gallbladder with chronic cholecystitis without obstruction (principal); F12.90 Cannabis use, unspecified, uncomplicated
CPT/HCPCS: 47562; 36415; 82150; 86850; 86900; 86901; 88304; A9270; J0690; J1100; J1170; J1200; J1885; J2250; J2405; J2704; J2710; J3010; J7030; J7120

== ENCOUNTER 2021-01-05 09:48 | Outpatient (CLI) | payer OTHER, SELFPAY ==
--- NOTE | ~2021-01-05 | CT_ITS ---
EXAMINATION: CT abdomen pelvis w con DATE: 01/05/2021 10:27 INDICATION: Hematuria. Urinary tract infection symptoms. TECHNIQUE: Computed tomography (CT) of the abdomen and pelvis was performed with 100 mL Omnipaque-350 intravenous contrast. Automated exposure control and iterative reconstruction technique were employe d. The dose-length product was 564.79 mGy-cm. COMPARISON: CT dated 01/20/2020 FINDINGS: Minimal dependent atelectasis in the bilateral lower lobes. Heart size is normal. No pericardial or p leural effusion. Cholecystectomy clips the gallbladder fossa. Liver, spleen, pancreas and bilateral a drenal glands are normal. Normal kidneys demonstrate symmetric enhancement with no urolithiasis or hy dronephrosis. No stones seen along the course of ureters. There are a couple tiny phleboliths in the right hemipelvis. Bowels including the appendix are normal. IUD in expected position within the antev erted uterus. Bladder is normal. Bilateral adnexal cysts/follicles measuring 4.5 cm on the right and 1.9 cm on the left. No free intraperitoneal gas or fluid. No pathologically enlarged abdominal or pel jael lymphadenopathy. Bones are unremarkable. IMPRESSION: 1. Normal kidneys and ureters with no evident urolithiasis or other acute intra-abdominal/pelvic proc ess. 2. IUD in expected position within the anteverted uterus. Reviewed, dictated and finalized at location A. IMPRESSION: 1. Normal kidneys and ureters with no evident urolithiasis or other acute intra -abdominal/pelvic process. 2. IUD in expected position within the anteverted uterus.
--- NOTE | ~2021-01-05 | XR_ITS ---
XR abdomen/kub 1V 01/05/2021 10:08 INDICATION: Hematuria TECHNIQUE: KUB COMPARISON: None FINDINGS: Bowel gas pattern is normal. There is an IUD in the pelvis. There is no evidence of free ai r, mass, organomegaly, ascites or obstruction. No abnormal calculi are seen. The bones appear intac t. IMPRESSION: 1: No acute abdominal abnormality identified. Reviewed, dictated and finalized at location A.
== END 2021-01-05 09:49 | disposition home or self-care (01) ==
PROVIDERS: PCP Family Medicine; Visit Provider Nurse Practitioner Family
DX: R31.9 Hematuria, unspecified (principal); R10.30 Lower abdominal pain, unspecified; Z97.5 Presence of (intrauterine) contraceptive device
CPT/HCPCS: 74018; 74177; Q9967

== ENCOUNTER 2021-11-02 09:24 | Emergency (ER) | payer OTHER, SELFPAY ==
[2021-11-02] VITALS (18 sets, daily range): BP systolic 92–126; BP diastolic 57–99; PULSE 70–122; RESP 12–22; O2SAT 98–100
--- NOTE | 2021-11-02 10:05 | ED.NAVMDI ---
HPI - Nausea/Vomiting/Diarrhea General Chief complaint: Nausea/Vomiting/Diarrhea Stated complaint: 9 weeks , N/V Time Seen by Provider: 11/02/21 09:29 Source: patient Mode of arrival: ambulatory Limitations: no limitations History of Present Illness HPI Narrative: 26-year-old female who is a G2, P1 presents today with complaints of nausea and vomiting. LMP around September 01 which would put her about 8 weeks along. Patient states nausea and vomiting started about 2 weeks ago. Saw her OB this week who sent her home with Lynettedebbie. Patient states yesterday she was able to keep hardly anything down except for strawberries. Patient awoke this morning dizzy lightheaded felt like she was going to pass out. Patient has not ate or drank anything this morning thus far. Patient denies any abdominal pain, pelvic cramping, vaginal discharge, or vaginal bleeding. Patient states she is supposed to get a ultrasound due October 17. The ultrasound machine was not working and the OBs office today of her appointment. Related Data Home Medications Medication Instructions Recorded Confirmed vitamins-iron fumarate 65 1 tablet PO DAILY 10/09/21 10/09/21 mg iron-folic acid 1 mg tablet sertraline 50 mg tablet 50 mg PO DAILY 10/09/21 10/09/21 Allergies Allergy/AdvReac Type Severity Reaction Status Date / Time shellfish derived Allergy Anaphylaxis Verified 11/02/21 10:04 Review of Systems Review of Systems: CONSTITUTIONAL: Denies fever, chills, or sweats. EYES: Denies visual changes, redness, or discharge. ENT: Denies rhinorrhea, congestion, sore throat, or otalgia. CARDIOVASCULAR: Denies chest pain, palpitations, or edema. RESPIRATORY: Denies cough or dyspnea. GASTROINTESTINAL: Nausea with vomiting. Denies abdominal pain or diarrhea. GENITOURINARY: Denies dysuria or hematuria. SKIN: Denies rash or itching. MUSCULOSKELETAL: Denies back pain, joint pain, or myalgia. NEUROLOGIC: Dizziness. Denies headache, numbness, or weakness. PSYCHIATRIC: Denies anxiety or depression. [facility] Past Medical History Medical History Anemia Anxiety Arrest of descent, delivered, current hospitalization BMI 31.0-31.9,adult BMI greater than 30 Eczema Elevated liver enzymes Encounter for insertion of mirena IUD 05/10/20 Encounter for screening examination for sexually transmitted disease Frequent urinary tract infections Nausea and vomiting in adult OCD (obsessive compulsive disorder) anxiety Suppression of menstruation Symptomatic cholelithiasis Upper abdominal pain Surgical History Surgical History History of gynecological procedure Mirena Iud insertion - 05/10/2020 Hx laparoscopic cholecystectomy 03/03/2020 S/P section 01/06/20 Family History Family History Mother Gall bladder disease Diabetes mellitus Father CHF (congestive heart failure) COPD (chronic obstructive pulmonary disease) Substance abuse Hypertension Depression Sibling Substance abuse Thyroid condition Other No pertinent family history Social History Social History Smoking status: Never smoker Second hand tobacco smoke exposure: No Alcohol intake: never Drinks per week: 0 Alcohol use details: MAY HAVE 1 OR 2 DRINKS PER MONTH Substance use: former Substance use type: marijuana Other substance usage details: RECENTLY USED MARIJUANA A COUPLE OF TIMES TO HELP WITH ABDOMINAL PAIN/NAUSE Last use: 3 WEEKS AGO Additional living arrangements comments: 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 Gender identity (if verbalized by the patient): Female Sexual Orientation (if Verbalized by the Patient): Straight or Heterosexual Spiritual care concerns: No
[2021-11-02 10:13] LABS: Basophils Percent Auto 0.4 % (0.2-1.2); Eosinophils Percent Auto 0.3 % (0-4.4); Hemoglobin 13.9 g/dL (12.0-15.0); Immature Granulocyte Absolute 0.02 K/mm3 (0.00-0.031); Immature Granulocyte Percent A 0.2 % (0-0.5); Lymphocytes Absolute Auto 2.08 K/mm3 (0.9-3.2); Lymphocytes Percent Auto 22.7 % (18.3-44.2); Mean Corpuscular HGB Conc 33.1 g/dl (32-36); Mean Corpuscular Volume 90.5 fl (80-100); Mean Platelet Volume 9.9 fl (7.4-10.4); Monocytes Absolute Auto 0.6 K/mm3 (0.1-0.6); Monocytes Percent Auto 6.3 % (2.6-8.5); Neutrophils Absolute Auto 6.4 K/mm3 (1.3-6.7); Neutrophils Percent Auto 70.1 % (45.5-73.1); Platelet Count Result 237 k/mm3 (150-375); Red Blood Count 4.64 M/mm3 (4.2-5.4); Red Cell Distribution Width 13.2 % (11.5-14.5); White Blood Count 9.2 K/mm3 (4.5-10.0)
[2021-11-02] MEDS: ONDANSETRON INJ 4 MG/2 ML VIAL IV PUSH (10:14)
[2021-11-02] MEDS: LACTATED RINGERS 1,000 ML 999 ML IV CONT ×2 (10:14→10:46)
[2021-11-02 10:19] LABS: Alanine Aminotransferase 39 U/L (6-35); Albumin Level 4.2 g/dL (3.5-5.1); Alkaline Phosphatase 79 U/L (38-126); Anion Gap 10 mmol/L (8-16); Aspartate Amino Transferase 30 U/L (14-36); Bilirubin,Total 0.4 mg/dL (0.2-1.3); Blood Urea Nitrogen 8 mg/dL (7-17); Calcium 8.9 mg/dL (8.4-10.2); Carbon Dioxide 18 mmol/L (22-30); Chloride 108 mmol/L (98-107); Estimated CRCL calculation 131 ml/min; Estimated Glomerular Filt Rate > 60; Glucose 87 mg/dL (65-110); Lipase 135 U/L (23-300); Potassium 4.2 mmol/L (3.4-5.0); Sodium 136 mmol/L (137-145)
--- NOTE | 2021-11-02 11:08 | PC.NURSE ---
pt unable to provide urine sample. pt declining straight catheter
[2021-11-02 11:24] LABS: Add Urine Microscopic? YES; Appearance Urine Clear (Clear); Bilirubin Urine Negative (Negative); Blood Urine Negative (Negative); Color Urine Yellow (Yellow); Glucose Urine UA Negative (Negative); Ketones Urine Trace mg/dL (Negative); Leukocyte Esterase Ur 1+ LEU/UL (Negative); Nitrate Urine Negative (Negative); Protein Urine 1+ mg/dL (Negative); Specific Grav Ur >= 1.030 (1.001-1.035); Urobilinogen Urine 0.2 mg/dL (<2.0); pH Urine 5.5 (5.0-9.0)
[2021-11-02 11:31] LABS: Bacteria Urine Trace /hpf; Mucus Urine Heavy /lpf; RBC Urine 0-2 /hpf (0-2); Squamous Epithelial Cell Urine Many /hpf (Few)
[2021-11-02] MEDS: diphenhydrAMINE HCl INJ 50 MG/ML VIAL 12.5 MG IV PUSH (11:39)
[2021-11-02] MEDS: METOCLOPRAMIDE HCL INJ 10 MG/2 ML VIAL IV PUSH (11:40)
== END 2021-11-02 12:44 | disposition home or self-care (01) ==
PROVIDERS: Emergency Provider Nurse Practitioner Family; PCP Family Medicine
DX: O21.9 Vomiting of pregnancy, unspecified (principal); O99.341 Other mental disorders complicating pregnancy, first trimester; F41.9 Anxiety disorder, unspecified; Z3A.08 8 weeks gestation of pregnancy
CPT/HCPCS: 36415; 80053; 81001; 81025; 83690; 85025; 96361; 96374; 96375; 99284; J1200; J2405; J2765; J7120

== ENCOUNTER 2022-05-22 11:35 | Outpatient (RCR) | payer OTHER, SELFPAY ==
--- NOTE | ~2022-05-22 | US_ITS ---
EXAMINATION: US OB limited w BPP DATE: 05/22/2022 13:34 INDICATION: Gestational diabetes, third trimester TECHNIQUE: Real-time pelvic ultrasound was performed. The interpreting radiologist was not present fo r the study. COMPARISON: 01/19/2022 FINDINGS: There is a single living fetus in vertex presentation. The placenta is fundal/posterior. heart rate is 135 beats per minute (bpm). The amniotic fluid index is 12.1 cm which is normal. Biophysical profile performed by the technologist: breathing (30 sec sustained breathing in 30 minutes): 2 out of 2 movement (3 gross body movements in 30 minutes): 2 out of 2 tone (one episode of [id number]-[id number]-ausxtcd limb movement): 2 out of 2 Amniotic fluid pocket (2 cm): 2 out of 2 Total score: 8 out of 8 IMPRESSION: 1. Single living fetus in vertex presentation. 2. Biophysical profile 8 out of 8. 3. Normal amniotic fluid index. Reviewed, dictated and finalized at location A. SPORTATION DEPARTMENT HEAD
[2022-05-22 14:09] VITALS: BP 123/78; PULSE 86
== END 2022-07-13 12:46 | disposition home or self-care (01) ==
LOC: ANHOBOP 11:35
PROVIDERS: Visit Provider Obstetrics & Gynecology
DX: O36.8130 Decreased fetal movements, third trimester, not applicable or unspecified (principal); Z3A.36 36 weeks gestation of pregnancy
CPT/HCPCS: 59025; 76815; 76819

== ENCOUNTER 2022-06-08 05:31 | Inpatient (IN) | payer OTHER, SELFPAY ==
[2022-06-08] VITALS (51 sets, daily range): BP systolic 105–126; BP diastolic 56–88; PULSE 68–129; RESP 14–18; TEMP 36.4–37.2; O2SAT 94–100; BMI 34.7
--- NOTE | 2022-06-08 05:31 | LDADM ---
This patient, oRselia Yancey, was admitted to Labor/Delivery/Recovery 120 on 06/08/22 at 05:31. Plans for labor, pain management and were discussed with patient. Patient/family oriented to hospital policies and general routines including ID bracelet, bed and alarms, visiting hours, pain management, procedures, bathroom and other care routines, personal items, smoking policy, room service/diet and guest tray routines, security routines, and visiting hours. Patient/Family are encouraged to report perceived risks to care and to ask questions if they do not understand what they are told or what they should do. See OBIX for further documentation.
[2022-06-08 06:31] LABS: Basophils Percent Auto 0.2 % (0.2-1.2); Eosinophils Absolute Auto 0.1 K/mm3 (0-0.3); Eosinophils Percent Auto 0.8 % (0-4.4); Hematocrit 30.8 % (37.0-47.0); Hemoglobin 9.1 g/dL (12.0-15.0); Immature Granulocyte Absolute 0.11 K/mm3 (0.00-0.031); Immature Granulocyte Percent A 1.1 % (0-0.5); Lymphocytes Absolute Auto 1.57 K/mm3 (0.9-3.2); Lymphocytes Percent Auto 15.3 % (18.3-44.2); Mean Corpuscular HGB Conc 29.5 g/dl (32-36); Mean Corpuscular Hemoglobin 23.3 pg (26-34); Monocytes Absolute Auto 0.8 K/mm3 (0.1-0.6); Monocytes Percent Auto 7.5 % (2.6-8.5); Neutrophils Absolute Auto 7.7 K/mm3 (1.3-6.7); Neutrophils Percent Auto 75.1 % (45.5-73.1); Nucleated Red Blood Cells Perc 0.3 % (0.0-0.2); Platelet Count Result 194 k/mm3 (150-375); Red Cell Distribution Width 16.7 % (11.5-14.5); White Blood Count 10.3 K/mm3 (4.5-10.0)
[2022-06-08] MEDS: LACTATED RINGERS 1,000 ML 125 ML IV CONT ×2 (06:34→07:20)
--- NOTE | 2022-06-08 06:58 | PM.IMHP ---
H&P: HPI History of Present Illness Date/Time: 06/08/22 06:58 Chief Complaint: repeat Narrative: Roselia is a 26yo @ 39.1wks who presents for repeat . She reports good movement. No contractions. No VB or LOF. Her son was recently diagnosed with COVID; she also tested positive for COVID 06/07/22 but she is asymptomatic. Her is complicated by: - previous ; for repeat - COVID infection; asymptomatic Review of Systems Constitutional: Constitutional: Denies body ache(s), Denies chills and Denies fever(s) Eyes: Eyes: Denies change in vision Cardiovascular: Cardiovascular: Denies chest pain Respiratory: Respiratory: Denies cough and Denies dyspnea Gastrointestinal: Gastrointestinal: Denies abdominal pain, Denies nausea and Denies vomiting Genitourinary: Genitourinary: Denies abnormal vaginal bleeding Neurologic: Denies headache(s) Psychiatric: Psychiatric: Denies anxiety PMFSH Past Medical History Medical History Anemia Anxiety Arrest of descent, delivered, current hospitalization Blood glucose abnormal BMI 31.0-31.9,adult BMI greater than 30 Eczema Elevated liver enzymes Encounter for insertion of mirena IUD 05/10/20 Encounter for screening examination for sexually transmitted disease Frequent urinary tract infections Nausea and vomiting in adult OCD (obsessive compulsive disorder) anxiety Suppression of menstruation Symptomatic cholelithiasis Upper abdominal pain Vaginal discharge Surgical History Surgical History History of gynecological procedure Mirena Iud insertion - 05/10/2020 Hx laparoscopic cholecystectomy 03/03/2020 S/P section 01/06/20 Family History Family History Mother Gall bladder disease Diabetes mellitus Father CHF (congestive heart failure) COPD (chronic obstructive pulmonary disease) Substance abuse Hypertension Depression Sibling Substance abuse Thyroid condition Other No pertinent family history Social History Social History Smoking status: Never smoker Second hand tobacco smoke exposure: No Alcohol intake: never Drinks per week: 0 Alcohol use details: MAY HAVE 1 OR 2 DRINKS PER MONTH Substance use: never Substance use type: marijuana Other substance usage details: RECENTLY USED MARIJUANA A COUPLE OF TIMES TO HELP WITH ABDOMINAL PAIN/NAUSE Last use: 3 WEEKS AGO Lack of Transportation: No Lack of Food: Never True Current Housing: I Have Housing Concerned About Future Housing: No Difficulty Paying Gas/Electric Bills: No Difficulty Paying for Meds: No Currently Unemployed: No Education: Bachelor's Degree Difficulty w/ Childcare or Family Care: No Additional living arrangements comments: 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. Gender identity (if verbalized by the patient): Female Sexual Orientation (if Verbalized by the Patient): Straight or Heterosexual Spiritual care concerns: No Meds Home Medications and Allergies Home Medications Medication Instructions Recorded Confirmed Type vitamins-iron fumarate 65 1 tablet PO DAILY 10/09/21 05/18/22 History mg iron-folic acid 1 mg tablet omeprazole 20 mg capsule,delayed 20 mg PO DAILY #30 caps 04/27/22 05/18/22 Rx release Allergies Allergy/AdvReac Type Severity Reaction Status Date / Time shellfish derived Allergy Anaphylaxis Verified 05/28/22 09:45 Vital Signs Vital Signs - 24 hr 06/08/22 05:54 06/08/22 06:00 06/08/22 06:15 Pulse Rate 122 H 113 H 129 H Blood Pressure 115/77 110/68 119/81 06/08/22 06:30 Pulse Rate 115 H Blood Pressure 119/73 Exam Const: General: cooperativ
--- NOTE | 2022-06-08 07:07 | WPDHPUPDATE1 ---
History and Physical Update Update Date/Time: 06/08/22 07:07 History and Physical has been reviewed, including an updated exam of the patient. There are NO changes in the patient's condition. Risks, benefits, and alternatives have been discussed and questions answered. Patient agrees to proceed with procedure.
[2022-06-08 07:11] LABS: Rubella IgG Antibody 13.4 IU/ML
[2022-06-08 07:13] LABS: Hepatitis B Surface Antigen Negative (Negative)
--- NOTE | 2022-06-08 08:33 | P.PCNOB_ITS ---
OB - Delivery Note Procedure Delivery date: 06/08/22 Procedure: Procedures Operation Date: 06/08/22 07:30 <No data on this case meets the specified criteria> Events: Previous Delivery Route of delivery: Quantitative Blood Loss (ml): 610 Anesthesia type: Spinal Disposition: Floor Baby Date of : 06/08/22 Time of : 08:04 Weeks of gestation at delivery: 39 (.1) Infant gender: Female Weight (pounds): 8 Weight (ounces): 3 presentation: vertex Placenta delivery description: Spontaneous Cord Vessel Description: 3 Vessels and Clamped/Cut score one minute: 9 score five minutes: 9 Narrative: She was counseled on all risks and benefits in detail. She was taken to the operating room where spinal was placed. She was then prepped and draped in the normal sterile fashion. She received 2g Ancef and a time out was performed. A Pfannenstiel incision was made in the skin and carried down to the underlying fascia. The fascia was nicked on either side of the midline and the fascial incision was extended laterally and superiorly using curved Johnson scissors. The fascia was then elevated using Kush clamps and the underlying rectus muscles were dissected off the fascia, superiorly and inferiorly. The rectus muscles were then in the midline and the peritoneum was entered sharply. Once adequate exposure was obtained, a Mobius self retractor was placed within the abdomen. A bladder flap was created. A low transverse incision was made on the lower uterine segment and thin meconium stained fluid was noted. The occiput was brought to the hysterotomy and the head was easily delivered. The shoulders and body then followed without complications. The had spontaneous cry. The cord was clamped and cut and the infant was handed off to the awaiting pediatric nurse. A segment of the cord was collected for cord gases. The remaining cord blood was collected for typing. With pitocin i nfusing, the placenta delivered with gentle traction on the cord without complications. The uterus was then cleared out of all clots and debris using a clean lap. The hysterotomy was then repaired in a running, interlocking fashion using 0 Vicryl. The hysterotomy was found to be hemostatic and good uterine tone was noted. The bilateral adnexa were examined and found to be normal. The pelvis was cleared of all clots and fluid. The Mobius retractor was removed from the abdomen. The peritoneum, muscle, and fascia were examined and made hemostatic with bovie cautery. The fascia was then repaired using a 0 Vicryl suture in a running fashion. The subcutaneous tissue was then irrigated and made hemostatic with bovie cautery. The subcutaneous tissue was then reapproximated using 2-0 Vicryl. The skin was then closed using 4-0 Monocryl in a running subcuticular fashion. Sponge, lap, needle and instrument counts were correct at the end of the procedure x2. The patient tolerated the procedure well and was taken to recovery in a stable condition. [facility] Delivery Billing Delivery Delivery: Delivery Charge
[2022-06-08] MEDS: OXYTOCIN 30 UNITS/NS 500 ML 30 UNITS/500 ML BAG 125 UNITS IV CONT (09:24)
[2022-06-08] MEDS: MORPHINE SULFATE INJ (*CRX) 10 MG/ML AMP 2 MG IV PUSH ×2 (09:46→10:07)
--- NOTE | 2022-06-08 11:03 | OBPPTRN ---
Patient transferred to post room # 291 via stretcher accompanied by spouse and in open crib. Pt Oriented to unit, room, information board, rooming in, admission packet and security measures. PT introductions made and plan of care discussed per post op c section, covid symptoms. isolation, breast feeding, daily care activities and pain management. PT and spouse both recipients of instructions and no barriers to learning identified at this time. PT received instructions per one to one discussion, mom baby care guide and demonstrations. Patient verbalizes understanding.
[2022-06-08] MEDS: SIMETHICONE 80 MG TAB.CHEW PO ×3 (12:00→18:17)
[2022-06-08] MEDS: ONDANSETRON INJ 4 MG/2 ML VIAL IV PUSH (12:00)
[2022-06-08] MEDS: LORATADINE 10 MG TABLET PO (12:00)
[2022-06-08] MEDS: HYDROcodone/acetaminophen (*CRX) 5-325 MG TABLET 1 TAB PO (12:01)
[2022-06-08] MEDS: LANOLIN (LANSINOH) 7.5 GM CREAM 1 APPLIC TOPICAL (12:05)
[2022-06-08 12:44] LABS: Rapid Plasma Reagin Non-Reactive (NonReactive)
[2022-06-08] MEDS: diphenhydrAMINE HCl INJ 50 MG/ML VIAL 25 MG IV PUSH (14:24)
[2022-06-08] MEDS: KETOROLAC 30 MG/ML VIAL (*BKC) IV PUSH ×2 (14:25→20:14)
[2022-06-08] MEDS: DEXTROSE 5%/0.45% SOD CHL 1,000 ML 125 ML IV CONT (14:30)
[2022-06-08] MEDS: DOCUSATE SODIUM 100 MG CAPSULE PO (18:17)
[2022-06-08] MEDS: POLYSACCHARIDE IRON COMPLEX 150 MG CAPSULE PO (18:17)
[2022-06-09] MEDS: HYDROcodone/acetaminophen (*CRX) 5-325 MG TABLET 1 TAB PO ×2 (00:14→16:46)
[2022-06-09] MEDS: KCL 20 MEQ/D5/0.45% SOD CHL 1,000 ML 125 ML IV CONT (02:30)
[2022-06-09 05:10] VITALS: BP 119/79; PULSE 96; RESP 14; TEMP 36.8; O2SAT 99
[2022-06-09] MEDS: IBUPROFEN 600 MG TABLET PO ×3 (05:45→21:18)
[2022-06-09 05:49] LABS: Basophils Percent Auto 0.5 % (0.2-1.2); Eosinophils Percent Auto 0.2 % (0-4.4); Hematocrit 24.8 % (37.0-47.0); Hemoglobin 7.2 g/dL (12.0-15.0); Immature Granulocyte Absolute 0.12 K/mm3 (0.00-0.031); Immature Granulocyte Percent A 1.4 % (0-0.5); Lymphocytes Absolute Auto 1.54 K/mm3 (0.9-3.2); Lymphocytes Percent Auto 17.9 % (18.3-44.2); Mean Corpuscular Volume 79.2 fl (80-100); Mean Platelet Volume 10.5 fl (7.4-10.4); Monocytes Absolute Auto 0.8 K/mm3 (0.1-0.6); Monocytes Percent Auto 9.1 % (2.6-8.5); Neutrophils Absolute Auto 6.1 K/mm3 (1.3-6.7); Neutrophils Percent Auto 70.9 % (45.5-73.1); Nucleated Red Blood Cells Perc 0.3 % (0.0-0.2); Platelet Count Result 165 k/mm3 (150-375); Red Blood Count 3.13 M/mm3 (4.2-5.4); Red Cell Distribution Width 16.8 % (11.5-14.5); White Blood Count 8.6 K/mm3 (4.5-10.0)
[2022-06-09 06:28] LABS: Platelet Estimate Adequate (Adequate)
[2022-06-09 06:29] LABS: Hypochromasia 1+ (NORMAL)
[2022-06-09 06:30] LABS: Microcytosis 1+ (NORMAL); Schistocytes None Seen (NORMAL)
[2022-06-09 06:32] LABS: Ovalocytes 1+ (NORMAL); Tear Drop Cells 1+ (NORMAL)
--- NOTE | 2022-06-09 07:00 | WPDANLDPN2 ---
Anes-Prog Note L&D Date/Time: 06/09/22 07:00 Comfortable throughout: section Neuraxial method: spinal Epidural/Spinal procedure site: clean & non-tender Neuro status: Neuro function grossly intact. Cardiovascular status: normal Respiratory status: normal Airway patency: baseline Mental status: baseline Post-Op hydration status: normal Vital Signs: Last Vital Signs Temp 98.2 F 06/09/22 05:10 Pulse 96 06/09/22 05:10 Resp 14 06/09/22 05:10 BP 119/79 06/09/22 05:10 Pulse Ox 99 06/09/22 05:10 O2 Del Method Room Air 06/09/22 05:10 Pain score (VAS): 0/10 I/O: Intake & Output 06/08/22 06/08/22 06/09/22 15:59 23:59 07:59 Intake Total 500 0 Output Total 710 150 Balance -210 -150 Post-procedural complaints: none Patient feedback: Patient satisfied with anesthetic care.
--- NOTE | 2022-06-09 07:01 | WPDANLDNPN2 ---
Anes-Prog Note L&D-Neuraxial Date/Time: 06/09/22 07:01 Neuraxial medications: intrathecal PF morphine Opiod-related complaints: none Patient feedback: Patient satisfied with post-operative pain management.
[2022-06-09] MEDS: MULTIVIT/MIN/PREN/FOL AC/IRON TABLET 1 TAB PO (09:00)
--- NOTE | 2022-06-09 09:00 | PC.NURSE ---
PT introductions made and plan of care discussed per post , c section, pain management, breast feeding, bottle feeding, daily care activities. PT and spouse both recipients of such instructions and no barriers to learning identified at this time. PT received such instructions per one to one discussion , mom baby care guide and demonstrations this shift. PT verbalized understanding of such care.
[2022-06-09 09:15] VITALS: BP 120/67; PULSE 98; RESP 18; TEMP 37.2; O2SAT 100
[2022-06-09] MEDS: SIMETHICONE 80 MG TAB.CHEW PO ×3 (09:15→16:45)
[2022-06-09] MEDS: DOCUSATE SODIUM 100 MG CAPSULE PO ×2 (09:15→16:47)
[2022-06-09] MEDS: HYDROcodone/acetaminophen (*CRX) 10-325 MG TABLET 1 TAB PO ×3 (09:16→21:18)
[2022-06-09] MEDS: POLYSACCHARIDE IRON COMPLEX 150 MG CAPSULE PO ×2 (09:16→16:47)
--- NOTE | 2022-06-09 10:57 | P.PNOB_ITS ---
OB - PN: Subj Subjective Date/time seen: 06/09/22 10:57 Patient comments: no complaints and pain well controlled baby status: doing well OB - PN: Obj Data Labs 06/09/22 05:45 Labs: Laboratory Results - last 24 hr 06/08/22 06/09/22 06:15 05:45 WBC 8.6 RBC 3.13 L Hgb 7.2 L Hct 24.8 L MCV 79.2 L MCH 23.0 L MCHC 29.0 L RDW 16.8 H Plt Count 165 MPV 10.5 H Immature Gran % (Auto) 1.4 H Neut % (Auto) 70.9 Lymph % (Auto) 17.9 L Tate % (Auto) 9.1 H Eos % (Auto) 0.2 Baso % (Auto) 0.5 Lymph # (Auto) 1.54 Tate # (Auto) 0.8 H Eos # (Auto) 0.0 Baso # (Auto) 0.0 Abs Immat Gran (auto) 0.12 H Absolute Neuts (auto) 6.1 Absolute Nucleated RBC 0.0 Nucleated RBC % 0.3 H Platelet Estimate Adequate Hypochromasia 1+ Anisocytosis Setter Automatic Spinning Lathe Microcytosis 1+ Tear Drop Cells 1+ Ovalocytes 1+ Schistocytes None seen RPR Non-reactive OB - PN A/P Assessment and Plan (1) COVID: Code(s): U07.1 - COVID-19 Status: Acute Assessment and Plan: minimal symptoms Plan day: 1 Plan: routine care Time Spent With Patient Time: Total time spent is greater than 50% in coordination of care (as documented) at patient's floor/unit and/or counseling patient: Exam Narrative: bandage c/d/i : Bimanual exam- vagina & uterus: other (Uterus firm, nt @U)
--- NOTE | 2022-06-09 11:30 | WPDANESPN ---
Anes - Prog Note Post-Op Date/Time: 06/09/22 11:30 Cardiovascular status: normal Respiratory status: normal Airway patency: baseline Mental status: baseline Post-Op hydration status: normal Vital Signs: Last Vital Signs Temp 36.8 C 06/09/22 05:10 Pulse 96 06/09/22 05:10 Resp 14 06/09/22 05:10 BP 119/79 06/09/22 05:10 Pulse Ox 99 06/09/22 05:10 O2 Del Method Room Air 06/09/22 05:10 Pain Score (VAS): 06/19 I/O: Intake & Output 06/08/22 06/09/22 06/09/22 23:59 07:59 15:59 Intake Total 0 1250 Output Total 150 1325 Balance -150 -75 Laboratory Tests 06/09/22 05:45 06/08/22 06/09/22 06:15 05:45 WBC 8.6 RBC 3.13 L Hgb 7.2 L Hct 24.8 L MCV 79.2 L MCH 23.0 L MCHC 29.0 L RDW 16.8 H Plt Count 165 MPV 10.5 H Immature Gran % (Auto) 1.4 H Neut % (Auto) 70.9 Lymph % (Auto) 17.9 L Bell % (Auto) 9.1 H Eos % (Auto) 0.2 Baso % (Auto) 0.5 Lymph # (Auto) 1.54 Bell # (Auto) 0.8 H Eos # (Auto) 0.0 Baso # (Auto) 0.0 Abs Immat Gran (auto) 0.12 H Absolute Neuts (auto) 6.1 Absolute Nucleated RBC 0.0 Nucleated RBC % 0.3 H Platelet Estimate Adequate Hypochromasia 1+ Anisocytosis Production Statistical Clerk Microcytosis 1+ Tear Drop Cells 1+ Ovalocytes 1+ Schistocytes None seen RPR Non-reactive Post-procedural complaints: none Patient Feedback: Patient satisfied with anesthetic care.
[2022-06-09 21:03] VITALS: BP 130/86; PULSE 65; RESP 16; TEMP 36.8; O2SAT 97
[2022-06-10] MEDS: IBUPROFEN 600 MG TABLET PO (07:00)
[2022-06-10] MEDS: HYDROcodone/acetaminophen (*CRX) 5-325 MG TABLET 1 TAB PO ×2 (07:00→11:59)
[2022-06-10 07:10] VITALS: BP 120/83; PULSE 91; RESP 18; TEMP 37.2
[2022-06-10] MEDS: DOCUSATE SODIUM 100 MG CAPSULE PO (09:22)
[2022-06-10] MEDS: MULTIVIT/MIN/PREN/FOL AC/IRON TABLET 1 TAB PO (09:22)
[2022-06-10] MEDS: POLYSACCHARIDE IRON COMPLEX 150 MG CAPSULE PO (09:22)
--- NOTE | 2022-06-10 09:46 | PM.OBPNVD ---
OB - PN: Subj Subjective Date/time seen: 06/10/22 09:46 Patient comments: no complaints and pain well controlled baby status: doing well OB - PN: Obj Data Labs 06/09/22 05:45 OB - PN A/P Plan day: 2 Plan: routine care and discharge home Time Spent With Patient Time: Total time spent is greater than 50% in coordination of care (as documented) at patient's floor/unit and/or counseling patient: Exam Narrative: bandage c/d/i : Bimanual exam- vagina & uterus: other (Uterus firm, nt @U)
--- NOTE | 2022-06-10 15:34 | PC.NURSE ---
1530: Pt called to hospital requesting that her prescription be transferred to a different pharmacy because her pharmacy is closed. RN called Dr. Celis and requested the above information. stated that she was not currently by a computer where she could order a narcotic but that she will work on it as soon as possible. suggested that the pt alternate otc ibuprofen and tylenol if she is unable to get the prescription. RN called pt at home and relayed the above information to her. Pt states understanding.
[2022-06-12 15:12] VITALS: BP 133/73; PULSE 85; RESP 20; TEMP 36.9; O2SAT 99
--- NOTE | 2022-06-13 07:57 | PM.OBDSVD ---
DS: Admitting Diagnosis Discharge Date 06/10/22 Admitting Diagnosis previous section DS: Discharge Diagnosis Discharge Diagnosis (1) S/P section: Code(s): Z98.891 - History of uterine scar from previous surgery Status: Acute OB - DS: Summary OB Procedures : Ultrasound OB Procedures Intrapartum: low cervical, transverse OB Procedures: : None Peripartum Data Delivery Method: Section Procedures: Procedures Operation Date: 06/08/22 07:30 Actual Procedure Side Surgeon p Repeat Section Latoya Riggins MD complications: none 1: Gender: Female Disposition of : home Status at Discharge Functional status at discharge: independent ambulation Overall status at discharge: patient is back to baseline Time Spent with Patient Time attestation: Total time spent providing and/or coordinating discharge services: Time spent: Less than 30 minutes Exam Const: General: cooperative, healthy appearing, comfortable and no acute distress Orientation/consciousness: patient oriented x3 Resp: Effort & Inspection: normal respiratory effort Auscultation: clear to auscultation bilaterally Cardio: Rate: regular rate GI: Inspection: non-distended and incision (covered with clean dressing) GI Palp: No abdominal tenderness and Yes Soft to palpation Auscultation: normal bowel sounds : Other: fundus firm Skin: General skin exam: normal color Neuro: General: patient oriented x3 Extrem: General: normal to inspection Psych: Appearance: grossly normal Affect: normal affect Attitude: cooperative Discharge Plan Discharge Attending physician on discharge: Latoya Riggins Consulting providers: Joss Strauss ; Phil Tinoco Discharging Clinician: Sheila Celis Anticipated Discharge Date/Time: 06/10/22 10:00 Patient Disposition: Home, Self-Care Activity: may shower, may drive after 2 weeks and pelvic rest Diet: regular Discharge Instructions: remove dressing on 06/14/22 Education: Mom and Baby Guide Given to: Mother Follow-Up: Call your delivering provider's office for an appointment to be seen in: 4 Weeks Mom and baby should come to the [facility] for the follow-up appointment. Appointment Date/Time: June 12, 2022 at 3:30 pm What to expect at your follow-up visit: Physical Assessment Call [phone] if you are unable to keep your appointment time. BREAST CARE: * Wear a snug supportive bra. * For engorgement discomfort: Breast Feeding: * Apply warm moist washcloths * Express milk as needed to relieve engorgement * Wear loose clothing * For sore nipples: * Identify correct latch-on * Apply warm moist washcloths before and after nursing * Air dry nipples after nursing * May apply Lansinoh cream to nipples ABDOMINAL INCISION: * Allow incision to air dry * Do NOT use lotions for powders on your incision * When showering, allow soap and water to run over the incision, but do not wash incision PERINEAL CARE: * Until bleeding stops, use your keara bottle after urinating * Change your pad frequently throughout the day * No tub baths until seen by your physician - You may shower ACTIVITY: * Rest as much as possible. * Do not exercise or lift anything heavier than your baby (such as laundry or other children.) * Avoid stairs or driving as much as possible. * Do not put anything into the vagina. No douching, tampons, or sexual activity until seen by physician. NOTIFY PHYSICIAN IF YOU HAVE ANY QUESTIONS OR IF ANY OF THE FOLLOWING SYMPTOMS OCCUR: * If your incision becomes red, swollen, or more painful than what you have experienced in the hospital. * If your vaginal bleeding becomes foul smelling. * If your vaginal bleeding becomes more heavy than a period or if your bleeding changes fr
== END 2022-06-10 12:05 | disposition home or self-care (01) | DRG 786 ==
LOC: ANHLDR 08:58 → ANHOB2 06-10 10:27 → ANHLDR 06-13 07:20 → ANHOB2 06-13 07:20
PROVIDERS: Admitting Provider Obstetrics & Gynecology; Visit Provider Obstetrics & Gynecology Gynecology
PROC: 10D00Z1 Extraction of Products of Conception, Low, Open Approach (ICD-10-PCS; CPT 59514; principal; 2022-06-08 07:30)
DX: O34.211 Maternal care for low transverse scar from previous cesarean delivery (principal); U07.1 COVID-19; O98.52 Other viral diseases complicating childbirth; Z37.0 Single live birth; Z3A.39 39 weeks gestation of pregnancy; O99.02 Anemia complicating childbirth; D64.9 Anemia, unspecified
CPT/HCPCS: 36415; 85025; 86592; 86762; 86850; 86900; 86901; 87340; A9270; J0131; J1100; J1200; J1885; J2270; J2274; J2370; J2405; J2590; J3010; J3480; J7120

== ENCOUNTER 2022-07-10 15:02 | Outpatient (CLI) | payer OTHER, SELFPAY ==
[2022-07-10 15:55] LABS: Beta HCG Quantitative 2.46 mIU/ML
== END 2022-07-10 15:03 | disposition home or self-care (01) ==
LOC: ANHLAB 15:04
PROVIDERS: PCP Family Medicine; Visit Provider Student in an Organized Health Care Education/Training Program
DX: N92.6 Irregular menstruation, unspecified (principal)
CPT/HCPCS: 36415; 84702

== ENCOUNTER 2022-10-14 09:24 | Emergency (ER) | payer OTHER, SELFPAY ==
--- NOTE | 2022-10-14 09:29 | ED.GENADULT ---
HPI - General Adult General Chief complaint: Upper Respiratory Infection Stated complaint: Sore Throat,Bilateral Ear Irritation Time Seen by Provider: 10/14/22 09:29 Source: patient Mode of arrival: ambulatory Limitations: no limitations History of Present Illness HPI narrative: 27-year-old female patient presents to the [facility] with complaints of sore throat and ear pain for the past 2 and half to 3 weeks. Patient states she was treated for strep in early September after her son had been diagnosed. Patient states she came symptomatic shortly afterwards and did a tele doc was read and received antibiotics. Patient states her throat was feeling better after receiving the antibiotics and the sushi. The throat pain came back. Patient states she has had throat pain ever since then. Patient also complaining of bilateral ear pain as well. Denies taking any antihistamines stating she does not have history of seasonal allergies. Denies any fevers, body aches or chills. Denies any abdominal pain, nausea, vomiting or diarrhea. Related Data Allergies Allergy/AdvReac Type Severity Reaction Status Date / Time shellfish derived Allergy Intermediate Anaphylaxis Verified 10/14/22 09:32 Review of Systems Review of Systems: CONSTITUTIONAL: Denies fever, chills, or sweats. EYES: Denies visual changes, redness, or discharge. ENT: Denies rhinorrhea, congestion, Positive sore throat, positive bilateral otalgia. CARDIOVASCULAR: Denies chest pain, palpitations, or edema. RESPIRATORY: Denies cough or dyspnea. GASTROINTESTINAL: Denies abdominal pain, nausea, vomiting, or diarrhea. GENITOURINARY: Denies dysuria or hematuria. SKIN: Denies rash or itching. MUSCULOSKELETAL: Denies back pain, joint pain, or myalgia. NEUROLOGIC: Denies headache, numbness, or weakness. PSYCHIATRIC: Denies anxiety or depression. [facility] Past Medical History Medical History Adult BMI 29.0-29.9 kg/sq m Anemia Anxiety Arrest of descent, delivered, current hospitalization Blood glucose abnormal BMI 31.0-31.9,adult BMI greater than 30 Eczema Elevated liver enzymes Encounter for initial insertion of intrauterine contraceptive device Encounter for insertion of mirena IUD 05/10/20 Encounter for screening examination for sexually transmitted disease Frequent urinary tract infections Nausea and vomiting in adult OCD (obsessive compulsive disorder) anxiety Suppression of menstruation Symptomatic cholelithiasis Upper abdominal pain Vaginal discharge Surgical History Surgical History History of gynecological procedure Mirena Iud insertion - 05/10/2020 Hx laparoscopic cholecystectomy 03/03/2020 S/P section Family History Family History Mother Gall bladder disease Diabetes mellitus Father CHF (congestive heart failure) COPD (chronic obstructive pulmonary disease) Substance abuse Hypertension Depression Sibling Substance abuse Thyroid condition Other No pertinent family history Social History Social History Smoking status: Never smoker Second hand tobacco smoke exposure: No Alcohol intake: never Drinks per week: 0 Alcohol use details: MAY HAVE 1 OR 2 DRINKS PER MONTH Substance use: never Substance use type: marijuana Other substance usage details: RECENTLY USED MARIJUANA A COUPLE OF TIMES TO HELP WITH ABDOMINAL PAIN/NAUSE Last use: 3 WEEKS AGO Lack of Transportation: No Lack of Food: Never True Current Housing: I Have Housing Concerned About Future Housing: No Difficulty Paying Gas/Electric Bills: No Difficulty Paying for Meds: No Currently Unemployed: No Education: Bachelor's Degree Difficulty w/ Childcare or Family Care: No Living arran
[2022-10-14 09:31] VITALS: BP 91/68; PULSE 90; RESP 18; TEMP 36.4; O2SAT 98
== END 2022-10-14 10:00 | disposition home or self-care (01) ==
PROVIDERS: Emergency Provider Nurse Practitioner Family; PCP Family Medicine
DX: J30.2 Other seasonal allergic rhinitis (principal); J02.9 Acute pharyngitis, unspecified; D64.9 Anemia, unspecified
CPT/HCPCS: 87081; 87880; 99213; G0463